=== PATIENT | female | born 1930 | race Caucasian/White ===

== ENCOUNTER 2016-08-12 17:23 | Inpatient (IN) | payer MEDICARE ==
[2016-08-12 19:09] LABS: Hematocrit 37 % (35-47); Hemoglobin 11.4 g/dl (12.0-16.0); Mean Corpuscular HGB Conc 31 g/dl (31-36); Mean Corpuscular Hemoglobin 24 pg (27-31); Mean Corpuscular Volume 76 fL (80-97); Mean Platelet Volume 8 um3 (7.4-10.4); Red Blood Count 4.81 10^6/ul (4.0-5.4); Red Cell Distribution Width 21 % (10.5-15)
[2016-08-12 19:20] LABS: Albumin 3.1 g/dL (3.2-5.2); BUN/Creatinine Ratio 13.8 (8-20); C Reactive Protein 146.77 mg/L (< 5.00); Calcium 8.9 mg/dL (8.6-10.3); EGFR African American 46.7 (>60); EGFR Non-African American 36.3 (>60); Globulin 4.4 g/dL (2-4); Potassium 3.8 mmol/L (3.5-5.0); Total Bilirubin 0.6 mg/dL (0.2-1.0); Total Protein 7.5 g/dL (6.4-8.9)
[2016-08-12 19:22] LABS: Troponin I 0.03 ng/mL (<0.04)
--- NOTE | 2016-08-12 19:40 | RAD ---
Indication: Shortness of breath. Single frontal view of the chest performed at 1909 hours was reviewed. Comparison is made with previous exam dated December 16, 2015. No mediastinal shift is noted. Heart is of normal size and configuration. There is suggestion of a left upper lobe mass with interstitial edema throughout both lung feliz. Findings are consistent with vascular congestion. IMPRESSION: Diffuse interstitial edema with prominent left upper lobe lesion. Vascular congestion should be considered.
[2016-08-12] MEDS ORDERED: NS 0.9% 1000 ML* 1,000 ML IV SCH (21:00)
[2016-08-12 21:33] LABS: FIO2 32
[2016-08-12] MEDS ORDERED: Iodixanol* (CONTRAST) 320 MG/ML 100 ML SDV IV ONE (21:35)
[2016-08-12 21:36] LABS: PCO2 Arterial 45 mmHg (35-45)
--- NOTE | 2016-08-12 23:11 | ED ---
Arcadio Oconnell Erika, scribed for Stevan Sheldon MD on 08/12/16 at 1951 . Altered Mental Status - HPI Summary HPI Summary: Patient is an 85-year-old female BIBA to the ED from [place] for a CC of AMS. 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 When [facility] arrived, they noted her O2 was low. Son states pt was alert yesterday, but has been lethargic today. He denies known cough. Son also reports pt has had lesions since she had an allergic reaction to Abx last year, and states she has been picking at them since then so they are still present. Hx lung CA treated with radiation. Hx breast CA - mastectomy in April 2016. Denies Hx COPD. LEVEL 5 CAVEAT - AMS. - History Of Current Complaint Chief Complaint: EDAltMentalStatus Stated Complaint: AMS Time Seen by Provider: 08/12/16 18:06 Hx Obtained From: Family/Engraving Patternmaker - Son Hx From Patient Unobtainable Due To: Altered Mental Status Onset/Duration: Still Present Timing: Constant Severity Currently: Moderate Character: Responsiveness Aggravating Factor(s): Unknown - Allergies/Home Medications Allergies/Adverse Reactions: Allergies Allergy/AdvReac Type Severity Reaction Status Date / Time Nitrofuran Derivatives Allergy Severe Blisters Verified 07/24/16 10:58 Penicillins [PCN] Allergy Severe Rash Verified 07/24/16 10:43 Terfenadine [From Seldane] Allergy Blisters Verified 07/24/16 10:43 IVC FILTER -NO MRIs Allergy NO Uncoded 07/24/16 10:43 AVAILABLE DOCUMENTATION 0F MAKE AND MODEL PMH/Surg Hx/FS Hx/Imm Hx Endocrine/Hematology History: Reports: Hx Anticoagulant Therapy Denies: Hx Diabetes Cardiovascular History: Reports: Hx Aneurysm, Hx Deep Vein Thrombosis, Hx Embolism Denies: Hx Hypertension, Hx Pacemaker/ICD GI History: Reports: Hx Gastrointestinal Bleed History: Reports: Hx Kidney Infection Denies: Hx Renal Disease Musculoskeletal History: Reports: Hx Bursitis Sensory History: Denies: Hx Hearing Aid Neurological History: Reports: Hx Dementia - ON ARICEPT Psychiatric History: Reports: Hx Depression Denies: Hx Panic Disorder - Cancer History Cancer Type, Location and Year: ROBERT adenocarcinoma. breast CA Hx Chemotherapy: Yes Hx Radiation Therapy: Yes - LUNG CANCER - Surgical History Surgery Procedure, Year, and Place: IVC 2004 FILTER PLACED, lumbar surgery approx. 2001, left mastectomy-04/2016 Infectious Disease History: No Infectious Disease History: Denies: Traveled Outside the [place] in Last 30 Days - Family History Known Family History: Positive: Cardiac Disease - Social History [facility]: [facility] Alcohol Use: Occasionally Alcohol Amount: 1-2 MONTH Hx Substance Use: No Substance Use Type: Reports: None Review of Systems - ROS Summary Review of Systems Summary: LEVEL 5 CAVEAT - AMS Positive: Fatigue Skin: Other - lesions on skin - old Neurological: Other - decreased responsiveness All Other Systems Reviewed And Are Negative: No Physical Exam Triage Information Reviewed: Yes Vital Signs On Initial Exam: Initial Vitals Temp Pulse Resp BP Pulse Ox 98.8 F 95 18 139/72 94 08/12/16 17:30 08/12/16 17:30 08/12/16 17:30 08/12/16 17:30 08/12/16 17:30 Vital Signs Reviewed: Yes Completion Of Physical Exam Limited Due To: Altered Mental Status Appearance: Positive: Well-Appearing, No Pain Distress Skin: Positive: Warm, Skin Color Reflects Adequate Perfusion, Dry, Other - Excoriated lesions - a few on face and LUE Head/Face: Positive: Normal Head/Face Inspection Eyes: Positive: Normal ENT: Positive: Other - dry mucus membranes Neck: Positive: Supple, Nontender Respiratory/Lung Sounds: Positive: Breath Sounds Present, Other - Crackles diffuse in the left lung field Cardiovascular: Positive: RRR Abdomen Description: Positive: Nontender, Soft Bowel Sounds: Positive: Present Musculoskeletal: Positive: Normal. Negative: Edema Left, Edema Right Neurological: Positive: Other - Stuporous, awakes to voice Psychiatric: Positive: Affect/Mood Appropriate - Deng Coma Scale Coma Scale Total: 14 Diagnostics - Vital Signs Vital Signs Temp Pulse Resp BP Pulse Ox 08/12/16 17:30 98.8 F 88 19 139/72 95 - Laboratory Lab Results: Lab Results 08/12/16 08/12/16 08/12/16 Range/Units 17:47 17:47 17:47 WBC 7.0 (3.5-10.8) 10^3/ul RBC 4.81 (4.0-5.4) 10^6/ul Hgb 11.4 L (12.0-16.0) g/dl Hct 37 (35-47) % MCV 76 L (80-97) fL MCH 24 L (27-31) pg MCHC 31 (31-36) g/dl RDW 21 H (10.5-15) % Plt Count 234 (150-450) 10^3/ul MPV 8 (7.4-10.4) um3 Neut % (Auto) 53.5 (38-83) % Lymph % (Auto) 23.8 L (25-47) % Fulton % (Auto) 13.0 H (1-9) % Eos % (Auto) 8.9 H (0-6) % Baso % (Auto) 0.8 (0-2) % Absolute Neuts (auto) 3.7 (1.5-7.7) 10^3/ul Absolute Lymphs (auto) 1.7 (1.0-4.8) 10^3/ul Absolute Monos (auto) 0.9 H (0-0.8) 10^3/ul Absolute Eos (auto) 0.6 (0-0.6) 10^3/ul Absolute Basos (auto) 0.1 (0-0.2) 10^3/ul Absolute Nucleated RBC 0.01 10^3/ul Nucleated RBC % 0.2 D-Dimer, Quantitative 831 H (Less Than 230) ng/mL Patient Temperature ABG pH (7.35-7.45) ABG pCO2 (35-45) mmHg ABG pO2 (80-100) mmHg ABG HCO3 (19-31) mmol/L ABG O2 Saturation (95-98) % ABG Base Excess (-2.0-2.0) Respiration Rate O2 Delivery Device Ventilator Type Vent Mode FiO2 Inspiratory Time PEEP Pressure Support Pressure Control EPAP IPAP BiPAP Sodium 137 (133-145) mmol/L Potassium 3.8 (3.5-5.0) mmol/L Chloride 101 (101-111) mmol/L Carbon Dioxide 28 (22-32) mmol/L Anion Gap 8 (2-11) mmol/L BUN 19 (6-24) mg/dL Creatinine 1.38 H (0.51-0.95) mg/dL Est GFR ( Amer) 46.7 (>60) Est GFR (Non-Af Amer) 36.3 (>60) BUN/Creatinine Ratio 13.8 (8-20) Glucose 101 H (70-100) mg/dL Calcium 8.9 (8.6-10.3) mg/dL Total Bilirubin 0.60 (0.2-1.0) mg/dL AST 31 (13-39) U/L ALT 13 (7-52) U/L Alkaline Phosphatase 136 H (34-104) U/L Troponin I 0.03 (<0.04) ng/mL C-Reactive Protein 146.77 H (< 5.00) mg/L B-Natriuretic Peptide ( - 100) pg/mL Total Protein 7.5 (6.4-8.9) g/dL Albumin 3.1 L (3.2-5.2) g/dL Globulin 4.4 H (2-4) g/dL Albumin/Globulin Ratio 0.7 L (1-3) 08/12/16 08/12/16 Range/Units 17:47 21:25 WBC (3.5-10.8) 10^3/ul RBC (4.0-5.4) 10^6/ul Hgb (12.0-16.0) g/dl Hct (35-47) % MCV (80-97) fL MCH (27-31) pg MCHC (31-36) g/dl RDW (10.5-15) % Plt Count (150-450) 10^3/ul MPV (7.4-10.4) um3 Neut % (Auto) (38-83) % Lymph % (Auto) (25-47) % Fulton % (Auto) (1-9) % Eos % (Auto) (0-6) % Baso % (Auto) (0-2) % Absolute Neuts (auto) (1.5-7.7) 10^3/ul Absolute Lymphs (auto) (1.0-4.8) 10^3/ul Absolute Monos (auto) (0-0.8) 10^3/ul Absolute Eos (auto) (0-0.6) 10^3/ul Absolute Basos (auto) (0-0.2) 10^3/ul Absolute Nucleated RBC 10^3/ul Nucleated RBC % D-Dimer, Quantitative (Less Than 230) ng/mL Patient Temperature Not Reportable ABG pH 7.42 (7.35-7.45) ABG pCO2 45 (35-45) mmHg ABG pO2 66 L (80-100) mmHg ABG HCO3 28.0 (19-31) mmol/L ABG O2 Saturation 94.8 L (95-98) % ABG Base Excess 4.1 H (-2.0-2.0) Respiration Rate Not Reportable O2 Delivery Device oxymask Ventilator Type Not Reportable Vent Mode Not Reportable FiO2 32 Inspiratory Time Not Reportable PEEP Not Reportable Pressure Support Not Reportable Pressure Control Not Reportable EPAP Not Reportable IPAP Not Reportable BiPAP Not Reportable Sodium (133-145) mmol/L Potassium (3.5-5.0) mmol/L Chloride (101-111) mmol/L Carbon Dioxide (22-32) mmol/L Anion Gap (2-11) mmol/L BUN (6-24) mg/dL Creatinine (0.51-0.95) mg/dL Est GFR ( Amer) (>60) Est GFR (Non-Af Amer) (>60) BUN/Creatinine Ratio (8-20) Glucose (70-100) mg/dL Calcium (8.6-10.3) mg/dL Total Bilirubin (0.2-1.0) mg/dL AST (13-39) U/L ALT (7-52) U/L Alkaline Phosphatase (34-104) U/L Troponin I (<0.04) ng/mL C-Reactive Protein (< 5.00) mg/L B-Natriuretic Peptide 83 ( - 100) pg/mL Total Protein (6.4-8.9) g/dL Albumin (3.2-5.2) g/dL Globulin (2-4) g/dL Albumin/Globulin Ratio (1-3) Result Diagrams: 08/12/16 17:47 08/12/16 17:47 Lab Statement: Any lab studies that have been ordered have been reviewed, and results considered in the medical decision making process. - Radiology CXR Radiology Interpretation Completed By: Radiologist - IMPRESSION: Diffuse interstitial edema with prominent left upper lobe lesion. Vascular congestion should be considered. - EKG 20:27 Cardiac Rate: NL - at 91 bpm EKG Rhythm: Sinus Rhythm EKG Interpretation: Possible old inferior NM Altered Mental Statu Course/Dx - Course Course Of Treatment: Ms. Naidu presented with a clear respiratory insufficiency. The cause is still unceertain. Her CXR is quite unusual and may be represents metastatic disease and infection. PE is still in the differential and she will need to be hydrated a bit for a CTA as her GFR is 36. - Diagnoses Discharge Diagnoses: Respiratory insufficiency - Provider Notifications Discussed Care Of Patient With: Dr. Bartlett (hospitalist) at 20:53 - agrees to admit - Critical Care Time Critical Care Time: 30-74 min Discharge - Discharge Plan Condition: Fair Disposition: ADMITTED TO [facility] Referrals: Leon Castaneda MD [Primary Care Provider] - The documentation as recorded by the Arcadio vogel Erika accurately reflects the service I personally performed and the decisions made by me, Stevan Sheldon MD.
--- NOTE | 2016-08-12 23:13 | HP ---
H&P (Free Text) History and Physical: PCP: OLIVER Castaneda MD Oncology: Simon Gonsalez MD Date/Time of Evaluation: 08/12/2016 2300 CC: lethargy HPI: Mrs Naidu is an 85YO female resident of [facility] HX primary lung and breast CA on therapy for breast CA who was found lethargic and brought in for evaluation. She is somnolent, but arouse to voice, seems reliable for current status information, but not for historical information which is provided by her son who is present. he states he last saw her Wednesday for Mother's day and she was at her baseline and able to follow conversations and participate in decisions. He is unaware of any issues until today. Mrs Naidu denies any symptoms at this time, but isn't certain why she is in the emergency room. Vitals are stable. Labs appear baseline excepting a d-dimer of 831 w/o a comparison. Her renal function is CKD stg 3b at baseline and so she will be given 1L IVFs over 4hours prior to obtaining a CTA chest to evaluation for PE although this is low on the differential as it would require cross IVC clot propagation which is possible as she is off anticoagulation due to GI hemorrhage. She has a history of AMS with UTI and this is high on the differential as no other explanation is identified. Will obtain UA via straight cath, if necessary. PMedHx dementia HX lung CA TX'd with radiation only HX breast CA s/p L mastectomy on chemoTX CKD stg 3b HLD HX DVT/presumed PE GI hemorrhage spinal stenosis s/p surgery pelvic FX thoracic aortic aneurysm LE peripheral neuropathy confusion w/ UTIs Ambulatory Orders Aspirin EC Low Dose* [Ecotrin EC Low Dose 81 MG*] 81 mg PO BEDTIME 03/08/13 Donepezil TAB* [Aricept 5 MG TAB*] 5 mg PO BID 03/08/13 Multiple Vitamin [Multi-Day Vitamins] 1 tab PO DAILY 03/08/13 Pregabalin CAP(*) [Lyrica CAP(*)] 150 mg PO BID 03/08/[address] CAP* [Cymbalta CAP*] 60 mg PO DAILY 12/20/13 Cyanocobalamin TAB* [Vitamin B12 TAB*] 1,000 mcg PO DAILY 02/19/15 Acetaminophen TAB* [Tylenol TAB*] 650 mg PO Q6H PRN #0 tab 12/20/15 Allergies Nitrofuran Derivatives Allergy (Severe, Verified 07/24/16 10:58) Blisters CAUSED SEVERE WELTS AND BLISTERS Penicillins [PCN] Allergy (Severe, Verified 07/24/16 10:43) Rash Terfenadine [From Seldane] Allergy (Verified 07/24/16 10:43) Blisters IVC FILTER -NO MRIs Allergy (Uncoded 07/24/16 10:43) NO AVAILABLE DOCUMENTATION 0F MAKE AND MODEL PER DR WATSON - NOT APPROVED FOR MRIs PSurgHx IVC filter placement L-spine surgery for stenosis L mastectomy for breast CA SocHx: former smoker, minimal alcohol, no recreational drugs; lives at [facility]; DNR/I code status FamHx: reviewed, positive for HTN ROS: as above, otherwise reviewed and all were negative Constitutional: NAD, normally developed, well-nourished elderly white female vitals: Vital Signs Temp 36.8 C 08/12/16 23:59 Pulse 85 08/12/16 23:59 Resp 18 08/12/16 23:59 BP 122/68 08/12/16 23:59 Pulse Ox 94 08/12/16 23:59 Intake & Output 08/12/16 08/12/16 08/13/16 11:59 23:59 11:59 Weight 54.431 kg HEENM: atraumatic; sclera/conjunctiva: non-icteric/clear; hearing: clinically intact; oropharynx: clear, mucosa moist Neck: soft tissue: non-tender; thyroid: normal Pulmonary: clear to auscultation bilaterally, good aeration, no accessory muscle use CV: RR/RR, normal S1S2, no carotid bruit, no jugular venous distention, 2+ B DP/ PT, no edema Abdominal: soft, non-distended, non-tender, no rebound/guarding/rigidity, normoactive bowel sounds, no hepatosplenomegaly or masses, no costovertebral angle tenderness Musculoskeletal: general: grossly intact, no overt deformity Integumental: normal appearance and texture of exposed skin Psychiatric orientation: AA&O to PP, not S affect: calm mood: acquiescent eye contact: poor content: unreliable responses: mildly slowed; opens eyes to voice answers appropriately, but unclear on details insight: poor Testing: Lab Results 08/12/16 08/12/16 08/12/16 Range/Units 17:47 17:47 17:47 WBC 7.0 (3.5-10.8) 10^3/ul RBC 4.81 (4.0-5.4) 10^6/ul Hgb 11.4 L (12.0-16.0) g/dl Hct 37 (35-47) % MCV 76 L (80-97) fL MCH 24 L (27-31) pg MCHC 31 (31-36) g/dl RDW 21 H (10.5-15) % Plt Count 234 (150-450) 10^3/ul MPV 8 (7.4-10.4) um3 Neut % (Auto) 53.5 (38-83) % Lymph % (Auto) 23.8 L (25-47) % Callahan % (Auto) 13.0 H (1-9) % Eos % (Auto) 8.9 H (0-6) % Baso % (Auto) 0.8 (0-2) % Absolute Neuts (auto) 3.7 (1.5-7.7) 10^3/ul Absolute Lymphs (auto) 1.7 (1.0-4.8) 10^3/ul Absolute Monos (auto) 0.9 H (0-0.8) 10^3/ul Absolute Eos (auto) 0.6 (0-0.6) 10^3/ul Absolute Basos (auto) 0.1 (0-0.2) 10^3/ul Absolute Nucleated RBC 0.01 10^3/ul Nucleated RBC % 0.2 D-Dimer, Quantitative 831 H (Less Than 230) ng/mL Patient Temperature ABG pH (7.35-7.45) ABG pCO2 (35-45) mmHg ABG pO2 (80-100) mmHg ABG HCO3 (19-31) mmol/L ABG O2 Saturation (95-98) % ABG Base Excess (-2.0-2.0) Respiration Rate O2 Delivery Device Ventilator Type Vent Mode FiO2 Inspiratory Time PEEP Pressure Support Pressure Control EPAP IPAP BiPAP Sodium 137 (133-145) mmol/L Potassium 3.8 (3.5-5.0) mmol/L Chloride 101 (101-111) mmol/L Carbon Dioxide 28 (22-32) mmol/L Anion Gap 8 (2-11) mmol/L BUN 19 (6-24) mg/dL Creatinine 1.38 H (0.51-0.95) mg/dL Est GFR ( Amer) 46.7 (>60) Est GFR (Non-Af Amer) 36.3 (>60) BUN/Creatinine Ratio 13.8 (8-20) Glucose 101 H (70-100) mg/dL Calcium 8.9 (8.6-10.3) mg/dL Total Bilirubin 0.60 (0.2-1.0) mg/dL AST 31 (13-39) U/L ALT 13 (7-52) U/L Alkaline Phosphatase 136 H (34-104) U/L Troponin I 0.03 (<0.04) ng/mL C-Reactive Protein 146.77 H (< 5.00) mg/L B-Natriuretic Peptide ( - 100) pg/mL Total Protein 7.5 (6.4-8.9) g/dL Albumin 3.1 L (3.2-5.2) g/dL Globulin 4.4 H (2-4) g/dL Albumin/Globulin Ratio 0.7 L (1-3) 08/12/16 08/12/16 Range/Units 17:47 21:25 WBC (3.5-10.8) 10^3/ul RBC (4.0-5.4) 10^6/ul Hgb (12.0-16.0) g/dl Hct (35-47) % MCV (80-97) fL MCH (27-31) pg MCHC (31-36) g/dl RDW (10.5-15) % Plt Count (150-450) 10^3/ul MPV (7.4-10.4) um3 Neut % (Auto) (38-83) % Lymph % (Auto) (25-47) % Callahan % (Auto) (1-9) % Eos % (Auto) (0-6) % Baso % (Auto) (0-2) % Absolute Neuts (auto) (1.5-7.7) 10^3/ul Absolute Lymphs (auto) (1.0-4.8) 10^3/ul Absolute Monos (auto) (0-0.8) 10^3/ul Absolute Eos (auto) (0-0.6) 10^3/ul Absolute Basos (auto) (0-0.2) 10^3/ul Absolute Nucleated RBC 10^3/ul Nucleated RBC % D-Dimer, Quantitative (Less Than 230) ng/mL Patient Temperature Not Reportable ABG pH 7.42 (7.35-7.45) ABG pCO2 45 (35-45) mmHg ABG pO2 66 L (80-100) mmHg ABG HCO3 28.0 (19-31) mmol/L ABG O2 Saturation 94.8 L (95-98) % ABG Base Excess 4.1 H (-2.0-2.0) Respiration Rate Not Reportable O2 Delivery Device oxymask Ventilator Type Not Reportable Vent Mode Not Reportable FiO2 32 Inspiratory Time Not Reportable PEEP Not Reportable Pressure Support Not Reportable Pressure Control Not Reportable EPAP Not Reportable IPAP Not Reportable BiPAP Not Reportable Sodium (133-145) mmol/L Potassium (3.5-5.0) mmol/L Chloride (101-111) mmol/L Carbon Dioxide (22-32) mmol/L Anion Gap (2-11) mmol/L BUN (6-24) mg/dL Creatinine (0.51-0.95) mg/dL Est GFR ( Amer) (>60) Est GFR (Non-Af Amer) (>60) BUN/Creatinine Ratio (8-20) Glucose (70-100) mg/dL Calcium (8.6-10.3) mg/dL Total Bilirubin (0.2-1.0) mg/dL AST (13-39) U/L ALT (7-52) U/L Alkaline Phosphatase (34-104) U/L Troponin I (<0.04) ng/mL C-Reactive Protein (< 5.00) mg/L B-Natriuretic Peptide 83 ( - 100) pg/mL Total Protein (6.4-8.9) g/dL Albumin (3.2-5.2) g/dL Globulin (2-4) g/dL Albumin/Globulin Ratio (1-3) ECG, personally reviewed: NSR rate 91, no ischemia CXR, personally reviewed: IMPRESSION: Diffuse interstitial edema with prominent left upper lobe lesion. Vascular congestion should be considered. CT chest/abd/pel W, personally reviewed (07/24/2016): IMPRESSION: 1. THERE HAS BEEN INTERVAL DEVELOPMENT OF AIRSPACE DISEASE OF THE LEFT LOWER LOBE WITH A SMALL NODULE. WHILE THIS MAY BE INFLAMMATORY OR INFECTIOUS IN NATURE, GIVEN THE HISTORY OF MALIGNANCY, METASTATIC NODULE IS WITHIN THE DIFFERENTIAL. RECOMMEND CLOSE INTERVAL FOLLOW-UP. 2. 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 THERE ARE SUBACUTE RIB FRACTURES BILATERALLY. THERE IS DIFFUSE OSTEOPENIA WITH MULTIPLE COMPRESSION DEFORMITIES OF THE SPINE. CONSIDER CORRELATION WITH BONE SCAN TO EVALUATE FOR METASTATIC PATTERN OF UPTAKE. 3. STABLE ASCENDING THORACIC AORTIC ANEURYSM. 4. ATHEROSCLEROSIS CTA chest: ordered, pending Impression: 85F presenting with lethargy/AMS of uncertain etiology despite a paucity of symptoms, infection (particularly UTI given HX or pneumonia given CXR ) is a consideration, elevated d-dimer and HX cancer makes PE a concern despite HX IVC filter (potential cross filter clot propagation as she is not anticoagulated due to HX GI bleeding on TX), dehydration alone could be the culprit, vs other as yet unproclaimed DX DIAGNOSIS & PLAN Primary lethargy : obtain UA, straight cath if needed : blood CX : empiric ceftriaxone & azithromycin : CTA chest after initial 1L fluid hydration : IVFs : supportive care Secondary breast CA s/p L mastectomy : continue outpatient oncology follow up HLD : heart healthy diet CKD stg 3b : no acute issues, periodic monitoring HX DVT/presumed PE : SCDs & heparin SQ HX GI hemorrhage : no NSAIDS LE peripheral neuropathy : continue pregabalin & duloxetine dementia : continue donepezil Admission Rational: DVTp: SCDs & heparin SQ Code Status: DNR/I HCP: sonSerafin
[2016-08-13] MEDS ORDERED: Acetaminophen TAB* 325 MG PO PRN (03:09)
[2016-08-13] MEDS: cefTRIAXone VIAL(*) 1,000 MG in NS 0.9% 50 ML* 50 ML IVPB SCH (05:20)
[2016-08-13] MEDS: Azithromycin IV(*) 500 MG in NS 0.9% 250 ML* 250 ML IVPB SCH (05:50)
[2016-08-13 05:59] LABS: Hematocrit 33 % (35-47); Hemoglobin 10.4 g/dl (12.0-16.0); Mean Corpuscular HGB Conc 32 g/dl (31-36); Mean Corpuscular Hemoglobin 24 pg (27-31); Mean Corpuscular Volume 75 fL (80-97); Mean Platelet Volume 8 um3 (7.4-10.4); Red Blood Count 4.34 10^6/ul (4.0-5.4); Red Cell Distribution Width 20 % (10.5-15); White Blood Count 5.9 10^3/ul (3.5-10.8)
[2016-08-13 06:08] LABS: BUN/Creatinine Ratio 16.2 (8-20); Calcium 7.8 mg/dL (8.6-10.3); EGFR African American 60.1 (>60); EGFR Non-African American 46.7 (>60); Potassium 3.8 mmol/L (3.5-5.0)
--- NOTE | 2016-08-13 08:20 | RAD ---
INDICATION: Shortness of breath COMPARISON: Most recent comparison CT is dated July 24, 2016 TECHNIQUE: Axial source images were acquired following the administration of 66 mL Visipaque [address] angiographic technique. Coronal and sagittal reconstructed images were constructed and reviewed. FINDINGS: There there are no filling defects in the pulmonary arteries to indicate acute pulmonary embolic disease. Again seen are diffuse centrilobular emphysematous changes similar in appearance to the previous CT examination. New since the previous CT examination are patchy groundglass opacifications and areas of interlobular thickening, most severely affecting the left lower lobe. There is no pleural effusion. There is no focal consolidation. The heart is normal in size. There is no evidence of pericardial effusion. 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 There are 2 precarinal lymph nodes (image 95), each measuring 9 mm in short axis diameter that have increased slightly compared to the previous CT examination. Similar to the previous CT examination there are multilevel degenerative changes of the thoracic spine including loss of intervertebral disc height and sclerotic compression deformity of the T7 vertebral body. Hyperattenuating sclerotic foci in the vertebral bodies are similar in appearance to the previous CT examination. Limited views of the upper abdomen show no abnormalities. IMPRESSION: 1. No CT evidence of acute pulmonary embolism. 2. Since the July 24, 2016 CT examination there has been interval development of patchy groundglass densities in interlobular thickening diffusely involving all 5 lobes but most severely affecting the left lower lobe. Diagnostic etiologies could include pulmonary edema, pneumonitis or organizing pneumonia. The time course of this appearance is likely too quick for chronic interstitial lung disease. 3. 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 4. Stable sclerotic lesions of the thoracic spine not changed since the July 24, 2016 CT examination.
[2016-08-13] MEDS: DULoxetine DR CAP* 30 MG CAP.DR PO SCH (08:47)
[2016-08-13] MEDS: Pregabalin CAP(*) 50 MG PO SCH ×2 (08:47→20:51)
[2016-08-13] MEDS: Donepezil TAB* 5 MG PO SCH ×2 (08:47→20:52)
[2016-08-13] MEDS ORDERED: Docusate CAP* 100 MG PO SCH (09:00)
[2016-08-13] MEDS ORDERED: Docusate CAP* 100 MG PO PRN (14:33)
[2016-08-13] MEDS ORDERED: Iodixanol* (CONTRAST) 320 MG/ML 100 ML SDV IV SCH (14:46)
--- NOTE | 2016-08-13 15:08 | PN ---
Subjective Date of Service: 08/13/16 Interval History: Pt is feeling well currently. She states she does not feel sleepy at this time. She states she has no pain or SOB. She does note that she has had a cough but she has not been producing any sputum. Objective Active Medications: Acetaminophen (Tylenol Tab*) 650 mg PO Q6H PRN PRN Reason: FEVER/PAIN Albuterol (Ventolin 2.5 Mg/3 Ml Neb.Zainab*) 2.5 mg INH Q2H PRN PRN Reason: SOB/WHEEZING Aspirin (Aspirin Ec Low Dose*) 81 mg PO BEDTIME [facility] Docusate Sodium (Colace Cap*) 200 mg PO BID PRN PRN Reason: CONSTIPATION Donepezil HCl (Aricept Tab*) 5 mg PO BID [facility] Last Admin: 08/13/16 08:47 Dose: 5 mg Duloxetine HCl (Cymbalta Cap*) 60 mg PO DAILY [facility] Last Admin: 08/13/16 08:47 Dose: 60 mg Heparin Sodium (Porcine) (Heparin Vial(*)) 5,000 units SUBCUT Q8HR [facility] Ceftriaxone Sodium 1,000 mg/ (Sodium Chloride) 50 mls @ 200 mls/hr IVPB Q24H [facility] Last Admin: 08/13/16 05:20 Dose: 200 mls/hr Azithromycin 500 mg/ Sodium (Chloride) 250 mls @ 250 mls/hr IVPB Q24H [facility] Last Admin: 08/13/16 05:50 Dose: 250 mls/hr Iodixanol (Visipaque* 320 (Contrast)) 75 ml IV ONCE [facility] Stop: 08/15/16 14:45 Pregabalin (Lyrica Cap(*)) 150 mg PO BID [facility] Last Admin: 08/13/16 08:47 Dose: 150 mg Vital Signs 08/12/16 08/13/16 08/13/16 23:59 00:00 00:12 Temperature 98.3 F Pulse Rate 85 87 89 Respiratory 18 20 21 Rate Blood Pressure 122/68 (mmHg) O2 Sat by Pulse 94 92 92 Oximetry 08/13/16 08/13/16 08/13/16 04:27 08:00 08:11 Temperature 97.8 F Pulse Rate 90 96 Respiratory 16 18 Rate Blood Pressure 139/68 149/52 (mmHg) O2 Sat by Pulse 89 93 93 Oximetry 08/13/16 08/13/1608/13/17 08:47 10:47 11:38 Temperature 97.3 F Pulse Rate 100 Respiratory 18 20 16 Rate Blood Pressure 131/78 (mmHg) O2 Sat by Pulse 92 Oximetry Oxygen Devices in Use Now: Simple Face Mask - 4.5L-92% Appearance: Elderly female lying in bed, NAD Eyes: No Scleral Icterus Ears/Nose/Mouth/Throat: Mucous Membranes Moist Respiratory: Symmetrical Chest Expansion and Respiratory Effort, - - crackles about 1/3 way up on R, 2/3 way up on L Cardiovascular: NL Sounds; No Murmurs; No JVD, RRR, No Edema Abdominal: NL Sounds; No Tenderness; No Distention Extremities: No Clubbing, Cyanosis Skin: No Nodules or Sclerosis, - - scabs noted on arms Neurological: - - alert, oriented to being in the hospital, month, unable to tell me the town Result Diagrams: 08/13/16 05:34 08/13/16 05:34 Additional Lab and Data: Lab Results 08/12/16 08/12/16 08/12/16 Range/Units 17:47 17:47 17:47 WBC 7.0 (3.5-10.8) 10^3/ul RBC 4.81 (4.0-5.4) 10^6/ul Hgb 11.4 L (12.0-16.0) g/dl Hct 37 (35-47) % MCV 76 L (80-97) fL MCH 24 L (27-31) pg MCHC 31 (31-36) g/dl RDW 21 H (10.5-15) % Plt Count 234 (150-450) 10^3/ul MPV 8 (7.4-10.4) um3 Neut % (Auto) 53.5 (38-83) % Lymph % (Auto) 23.8 L (25-47) % [place] % (Auto) 13.0 H (1-9) % Eos % (Auto) 8.9 H (0-6) % Baso % (Auto) 0.8 (0-2) % Absolute Neuts (auto) 3.7 (1.5-7.7) 10^3/ul Absolute Lymphs (auto) 1.7 (1.0-4.8) 10^3/ul Absolute Monos (auto) 0.9 H (0-0.8) 10^3/ul Absolute Eos (auto) 0.6 (0-0.6) 10^3/ul Absolute Basos (auto) 0.1 (0-0.2) 10^3/ul Absolute Nucleated RBC 0.01 10^3/ul Nucleated RBC % 0.2 D-Dimer, Quantitative 831 H (Less Than 230) ng/mL Patient Temperature ABG pH (7.35-7.45) ABG pCO2 (35-45) mmHg ABG pO2 (80-100) mmHg ABG HCO3 (19-31) mmol/L ABG O2 Saturation (95-98) % ABG Base Excess (-2.0-2.0) Respiration Rate O2 Delivery Device Ventilator Type Vent Mode FiO2 Inspiratory Time PEEP Pressure Support Pressure Control EPAP IPAP BiPAP Sodium 137 (133-145) mmol/L Potassium 3.8 (3.5-5.0) mmol/L Chloride 101 (101-111) mmol/L Carbon Dioxide 28 (22-32) mmol/L Anion Gap 8 (2-11) mmol/L BUN 19 (6-24) mg/dL Creatinine 1.38 H (0.51-0.95) mg/dL Est GFR ( Amer) 46.7 (>60) Est GFR (Non-Af Amer) 36.3 (>60) BUN/Creatinine Ratio 13.8 (8-20) Glucose 101 H (70-100) mg/dL Calcium 8.9 (8.6-10.3) mg/dL Total Bilirubin 0.60 (0.2-1.0) mg/dL AST 31 (13-39) U/L ALT 13 (7-52) U/L Alkaline Phosphatase 136 H (34-104) U/L Troponin I 0.03 (<0.04) ng/mL C-Reactive Protein 146.77 H (< 5.00) mg/L B-Natriuretic Peptide ( - 100) pg/mL Total Protein 7.5 (6.4-8.9) g/dL Albumin 3.1 L (3.2-5.2) g/dL Globulin 4.4 H (2-4) g/dL Albumin/Globulin Ratio 0.7 L (1-3) 08/12/16 08/12/16 Range/Units 17:47 21:25 WBC (3.5-10.8) 10^3/ul RBC (4.0-5.4) 10^6/ul Hgb (12.0-16.0) g/dl Hct (35-47) % MCV (80-97) fL MCH (27-31) pg MCHC (31-36) g/dl RDW (10.5-15) % Plt Count (150-450) 10^3/ul MPV (7.4-10.4) um3 Neut % (Auto) (38-83) % Lymph % (Auto) (25-47) % [place] % (Auto) (1-9) % Eos % (Auto) (0-6) % Baso % (Auto) (0-2) % Absolute Neuts (auto) (1.5-7.7) 10^3/ul Absolute Lymphs (auto) (1.0-4.8) 10^3/ul Absolute Monos (auto) (0-0.8) 10^3/ul Absolute Eos (auto) (0-0.6) 10^3/ul Absolute Basos (auto) (0-0.2) 10^3/ul Absolute Nucleated RBC 10^3/ul Nucleated RBC % D-Dimer, Quantitative (Less Than 230) ng/mL Patient Temperature Not Reportable ABG pH 7.42 (7.35-7.45) ABG pCO2 45 (35-45) mmHg ABG pO2 66 L (80-100) mmHg ABG HCO3 28.0 (19-31) mmol/L ABG O2 Saturation 94.8 L (95-98) % ABG Base Excess 4.1 H (-2.0-2.0) Respiration Rate Not Reportable O2 Delivery Device oxymask Ventilator Type Not Reportable Vent Mode Not Reportable FiO2 32 Inspiratory Time Not Reportable PEEP Not Reportable Pressure Support Not Reportable Pressure Control Not Reportable EPAP Not Reportable IPAP Not Reportable BiPAP Not Reportable Sodium (133-145) mmol/L Potassium (3.5-5.0) mmol/L Chloride (101-111) mmol/L Carbon Dioxide (22-32) mmol/L Anion Gap (2-11) mmol/L BUN (6-24) mg/dL Creatinine (0.51-0.95) mg/dL Est GFR ( Amer) (>60) Est GFR (Non-Af Amer) (>60) BUN/Creatinine Ratio (8-20) Glucose (70-100) mg/dL Calcium (8.6-10.3) mg/dL Total Bilirubin (0.2-1.0) mg/dL AST (13-39) U/L ALT (7-52) U/L Alkaline Phosphatase (34-104) U/L Troponin I (<0.04) ng/mL C-Reactive Protein (< 5.00) mg/L B-Natriuretic Peptide 83 ( - 100) pg/mL Total Protein (6.4-8.9) g/dL Albumin (3.2-5.2) g/dL Globulin (2-4) g/dL Albumin/Globulin Ratio (1-3) Microbiology and Other Data: Microbiology 08/13/16 00:46 Nasal Screen MRSA (PCR)([facility]) - Final Nasal Mrsa Positive Assess/Plan/Problems-Billing Ms Naidu is an 85 yo F who has a h/o lung cancer, breast cancer (currently going through chemo-last round of chemo was 16 days ago), stage III CKD, and h/ o DVT/PE in past who presented to the ER with c/o lethargy. - Patient Problems (1) Lethargy Current Visit: Yes Status: Acute Code(s): R53.83 - OTHER FATIGUE SNOMED Code(s): 175079878 Comment: Etiology is not completely clear. ? infectious vs seizure vs other. She is being treated for a possible pneumonia as perhaps an infectious pneumonia has led to her lethargy. I am also concerned about possible seizure with post-ictal state as she has a h/o breast cancer that is already metastatic to the liver. Will get CT brain with contrast to eval for metastatic disease. If anything abnormal brain CT will get EEG. She suddenly "woke up" this afternoon and is now alert. She is slightly confused still however. (2) Pneumonia Current Visit: Yes Status: Acute Code(s): J18.9 - PNEUMONIA, UNSPECIFIED ORGANISM SNOMED Code(s): 744641346 Comment: Will try to get a sputum sample. Send urine legionella and S pneumoniae antigens. Continue ceftriaxone and azithromycin. Try to wean down O2 if possible. (3) Breast cancer metastasized to liver Current Visit: Yes Status: Acute Code(s): C50.919 - MALIGNANT NEOPLASM OF UNSP SITE OF UNSPECIFIED FEMALE BREAST; C78.7 - SECONDARY MALIG NEOPLASM OF LIVER AND INTRAHEPATIC BILE DUCT SNOMED Code(s): 486746654 Comment: The patient is actively going through chemo. Her last chemo dose was 16 days ago. Will ask for oncology follow up tomorrow. (4) Stage III chronic kidney disease Current Visit: Yes Status: Acute Code(s): N18.3 - CHRONIC KIDNEY DISEASE, STAGE 3 (MODERATE) SNOMED Code(s): 062621204 Comment: Creatinine is at baseline. Continue to monitor. (5) DVT prophylaxis Current Visit: Yes Status: Acute Code(s): XCQ7814 - SNOMED Code(s): 987323201 Comment: SQ heparin (6) DNR (do not resuscitate) Current Visit: Yes Status: Acute
--- NOTE | 2016-08-13 16:57 | RAD ---
INDICATION: Altered mental status evaluate for metastatic disease. COMPARISON: Comparison is made with a prior CT of the brain from July 31, 2015. TECHNIQUE: Contiguous axial sections of the brain were obtained from the skull base to the vertex without and with contrast following intravenous injection of 75 ml of Visipaque 320 nonionic contrast. FINDINGS: The ventricles, cisterns and sulci are enlarged consistent with diffuse atrophy. There are small areas of decreased attenuation present in the subcortical and periventricular white matter most consistent with mild chronic small vessel ischemic changes. There is an old lacunar infarct present within the thalamus on the right side. No mass effect or abnormal area of enhancement is seen. There is no evidence for hemorrhage. No significant focal osseous abnormality is present. The visualized portion of the paranasal sinuses and mastoid air cells appear clear. IMPRESSION: 1. NO EVIDENCE FOR METASTATIC DISEASE. 2. 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
[2016-08-13] MEDS ORDERED: NS 0.9% 1000 ML* 1,000 ML IV SCH (17:30)
[2016-08-13] MEDS: Albuterol 2.5 MG/3 ML NEB.SOL* (0.083%) INH PRN (17:44)
[2016-08-13] MEDS: Aspirin EC Low Dose* 81 MG TAB.EC PO SCH (20:53)
[2016-08-14] MEDS: cefTRIAXone VIAL(*) 1,000 MG in NS 0.9% 50 ML* 50 ML IVPB SCH (05:07)
[2016-08-14] MEDS: Heparin VIAL(*) 5000 UNITS/ML VIAL (FIVE THOUSAND) SUBCUT SCH ×3 (05:23→22:23)
[2016-08-14] MEDS: Azithromycin IV(*) 500 MG in NS 0.9% 250 ML* 250 ML IVPB SCH (05:27)
[2016-08-14] MEDS: Donepezil TAB* 5 MG PO SCH ×2 (10:51→22:20)
[2016-08-14] MEDS: DULoxetine DR CAP* 30 MG CAP.DR PO SCH (10:51)
[2016-08-14] MEDS: Pregabalin CAP(*) 50 MG PO SCH ×2 (10:51→22:20)
--- NOTE | 2016-08-14 11:39 | PN ---
Progress Note - Progress Note SOAP: Subjective: []Presented to ER evening of 07/13 with AMS and admitted with concern for infection, work-up favoring pneumonia. Mild improvement since admission (venita. in terms of mental status). Last night tachycardia with EKG revealing A.Flutter , though tele cont.'s to show P-waves with sinus arhythmias. Underlying metastatic breast cancer tx.'d with Kadcyla s/p C4 07/[address] with known response on CT following C3. Known alzheimers, lives @ [facility]. Evelin states she feels OK, though needs to have a BM. "I guess I'm slightly confused." Notes her breathing is a little hard and has a cough when she deep breaths. Medications: Acetaminophen (Tylenol Tab*) 650 mg PO Q6H PRN PRN Reason: FEVER/PAIN Albuterol (Ventolin 2.5 Mg/3 Ml Neb.Zainab*) 2.5 mg INH Q2H PRN PRN Reason: SOB/WHEEZING Last Admin: 08/13/16 17:44 Dose: 2.5 mg Aspirin (Aspirin Ec Low Dose*) 81 mg PO BEDTIME [facility] Last Admin: 08/13/16 20:53 Dose: 81 mg Docusate Sodium (Colace Cap*) 200 mg PO BID PRN PRN Reason: CONSTIPATION Donepezil HCl (Aricept Tab*) 5 mg PO BID [facility] Last Admin: 08/14/16 10:51 Dose: 5 mg Duloxetine HCl (Cymbalta Cap*) 60 mg PO DAILY [facility] Last Admin: 08/14/16 10:51 Dose: 60 mg Heparin Sodium (Porcine) (Heparin Vial(*)) 5,000 units SUBCUT Q8HR [facility] Last Admin: 08/14/16 05:23 Dose: 5,000 units Ceftriaxone Sodium 1,000 mg/ (Sodium Chloride) 50 mls @ 200 mls/hr IVPB Q24H [facility] Last Admin: 08/14/16 05:07 Dose: 200 mls/hr Azithromycin 500 mg/ Sodium (Chloride) 250 mls @ 250 mls/hr IVPB Q24H [facility] Last Admin: 08/14/16 05:27 Dose: 250 mls/hr Sodium Chloride (Ns 0.9% 1000 Ml*) 1,000 mls @ 75 mls/hr IV PER RATE [facility] Last Admin: 08/14/16 10:53 Dose: 75 mls/hr Iodixanol (Visipaque* 320 (Contrast)) 75 ml IV ONCE [facility] Stop: 08/15/16 14:45 Last Admin: 08/13/16 16:09 Dose: 75 ml Pregabalin (Lyrica Cap(*)) 150 mg PO BID [facility] Last Admin: 08/14/16 10:51 Dose: 150 mg Objective: [] Vital Signs Temp Pulse Resp BP Pulse Ox 96.7 F 108 20 151/82 90 08/14/16 08:01 08/14/16 08:01 08/14/16 10:51 08/14/16 08:01 08/14/16 08:01 A&Ox3, though some difficulty with situation. HRR, tele ST with PVCs LS with crackles left base, dim. right base, scattered wheeze +BS, abd. soft and non-tender +PP=bilat., no edema noted Assessment: []85 yo f with metastatic breast cancer currently receiving Kadcyla and tolerating reasonably well. Admitted to the hospital with altered mental status and CT reveal concern for pneumonia, improving slowing with IV abx. albeit cont.'d resp. effort despite supplemental O2. She is more alert at this point when compared to ER notation, however appears to me acutely ill when compared to visits in the office. Plan: []1. Pneumonia: agree with current abx., unlikley pneumonitis with timing, though is she really isn't improving can consider steroids. Will check LDH and procalcitonin. Request Respiratory Therapy assessment and protocol for scheduled nebs and possible sputum induction. 2. Tachycardia: likely compensatory, cont. to monitor tele 3. Breast Cancer: good response with improved liver disease, reasonable to resume once back at baseline Will transfer pt. to Oncology Services d/t current tx.
[2016-08-14] MEDS: Albuterol 2.5 MG/3 ML NEB.SOL* (0.083%) INH PRN ×2 (14:07→23:08)
[2016-08-14] MEDS ORDERED: NS 0.9% 1000 ML* 1,000 ML IV SCH (15:36)
[2016-08-14] MEDS: Aspirin EC Low Dose* 81 MG TAB.EC PO SCH (22:19)
[2016-08-15] MEDS: Morphine INJ* 2 MG/ML 1 ML SYRINGE IV PRN ×2 (00:29→05:13)
[2016-08-15] MEDS: Heparin VIAL(*) 5000 UNITS/ML VIAL (FIVE THOUSAND) SUBCUT SCH ×3 (05:20→22:09)
[2016-08-15] MEDS: cefTRIAXone VIAL(*) 1,000 MG in NS 0.9% 50 ML* 50 ML IVPB SCH (05:22)
[2016-08-15 06:16] LABS: Hematocrit 34 % (35-47); Hemoglobin 10.7 g/dl (12.0-16.0); Mean Corpuscular HGB Conc 31 g/dl (31-36); Mean Corpuscular Hemoglobin 24 pg (27-31); Mean Corpuscular Volume 75 fL (80-97); Mean Platelet Volume 8 um3 (7.4-10.4); Red Blood Count 4.52 10^6/ul (4.0-5.4); Red Cell Distribution Width 21 % (10.5-15); White Blood Count 7.6 10^3/ul (3.5-10.8)
[2016-08-15 06:34] LABS: Albumin 2.7 g/dL (3.2-5.2); BUN/Creatinine Ratio 15.6 (8-20); Calcium 8.1 mg/dL (8.6-10.3); EGFR Non-African American 55.2 (>60); Globulin 3.8 g/dL (2-4); Potassium 3.7 mmol/L (3.5-5.0); Total Bilirubin 0.5 mg/dL (0.2-1.0); Total Protein 6.5 g/dL (6.4-8.9)
[2016-08-15] MEDS: Azithromycin IV(*) 500 MG in NS 0.9% 250 ML* 250 ML IVPB SCH (06:49)
[2016-08-15] MEDS: Donepezil TAB* 5 MG PO SCH ×2 (07:22→22:09)
[2016-08-15] MEDS: DULoxetine DR CAP* 30 MG CAP.DR PO SCH (07:24)
[2016-08-15] MEDS ORDERED: Furosemide IV* 10 MG/ML 2 ML VIAL (20 MG) IV STA (07:36)
[2016-08-15] MEDS ORDERED: methylPREDNISolone 125 MG* 2 ML VIAL IV ONE (07:38)
[2016-08-15] MEDS: Pregabalin CAP(*) 50 MG PO SCH ×2 (07:40→22:08)
--- NOTE | 2016-08-15 07:45 | PN ---
Progress Note - Progress Note SOAP: Subjective: patient states that she feels well this am, though visually looks ill. quite tachypneic at rest though denies SOB. over night apparently desaturated several times requiring face mask. she did have a bowel movement yesterday after some constipation Objective: Vital Signs Temp Pulse Resp BP Pulse Ox 97.5 F 107 28 133/85 90 08/14/16 20:17 08/14/16 20:17 08/15/16 07:40 08/14/16 20:08/15/16 02:13 currently breathing at 30-34, satting 88% on 5L sitting up tachypneic tachycardic diffuse crackles R>L soft nt +bs trace le edema scattered escoriations on head, face, legs with crusting oriented to place and time at this point. clearly confused on details but able to tell me where she is, where she lives, etc.. grossly nonfocal Laboratory Results - last 24 hr 08/14/16 08/15/16 08/15/16 13:12 05:43 05:43 WBC 7.6 RBC 4.52 Hgb 10.7 L Hct 34 L MCV 75 L MCH 24 L MCHC 31 RDW 21 H Plt Count 224 MPV 8 Neut % (Auto) 80.3 Lymph % (Auto) 6.7 L [place] % (Auto) 11.2 H Eos % (Auto) 1.4 Baso % (Auto) 0.4 Absolute Neuts (auto) 6.1 Absolute Lymphs (auto) 0.5 L Absolute Monos (auto) 0.8 Absolute Eos (auto) 0.1 Absolute Basos (auto) 0 Absolute Nucleated RBC 0 Nucleated RBC % 0 Sodium 139 Potassium 3.7 Chloride 107 Carbon Dioxide 24 Anion Gap 8 BUN 15 Creatinine 0.96 H Est GFR ( Amer) 71.0 Est GFR (Non-Af Amer) 55.2 BUN/Creatinine Ratio 15.6 Glucose 131 H Calcium 8.1 L Total Bilirubin 0.50 AST 25 ALT 11 Alkaline Phosphatase 114 H Lactate Dehydrogenase 308 H Total Protein 6.5 Albumin 2.7 L Globulin 3.8 Albumin/Globulin Ratio 0.7 L Acetaminophen (Tylenol Tab*) 650 mg PO Q6H PRN PRN Reason: FEVER/PAIN Albuterol (Ventolin 2.5 Mg/3 Ml Neb.Zainab*) 2.5 mg INH Q2H PRN PRN Reason: SOB/WHEEZING Last Admin: 08/14/16 23:08 Dose: 2.5 mg Aspirin (Aspirin Ec Low Dose*) 81 mg PO BEDTIME [facility] Last Admin: 08/14/16 22:19 Dose: 81 mg Docusate Sodium (Colace Cap*) 200 mg PO BID PRN PRN Reason: CONSTIPATION Donepezil HCl (Aricept Tab*) 5 mg PO BID [facility] Last Admin: 08/15/16 07:22 Dose: 5 mg Duloxetine HCl (Cymbalta Cap*) 60 mg PO DAILY [facility] Last Admin: 08/15/16 07:24 Dose: 60 mg Heparin Sodium (Porcine) (Heparin Vial(*)) 5,000 units SUBCUT Q8HR [facility] Last Admin: 08/15/16 05:20 Dose: 5,000 units Ceftriaxone Sodium 1,000 mg/ (Sodium Chloride) 50 mls @ 200 mls/hr IVPB Q24H [facility] Last Admin: 08/15/16 05:22 Dose: 200 mls/hr Azithromycin 500 mg/ Sodium (Chloride) 250 mls @ 250 mls/hr IVPB Q24H [facility] Last Admin: 08/15/16 06:49 Dose: 250 mls/hr Iodixanol (Visipaque* 320 (Contrast)) 75 ml IV ONCE [facility] Stop: 08/15/16 14:45 Last Admin: 08/13/16 16:09 Dose: 75 ml Morphine Sulfate (Morphine Inj (Syringe)*) 2 mg IV Q3H PRN PRN Reason: PAIN Last Admin: 08/15/16 05:13 Dose: 2 mg Pregabalin (Lyrica Cap(*)) 150 mg PO BID [facility] Last Admin: 08/15/16 07:40 Dose: 150 mg Assessment: 85 yo F w metastatic Her 2 positive breast cancer on palliative ado-trastuzumab presenting with lethargy and AMS. Her chest CT from admission appears like either pneumonitis, edema or lymphangitic spread of her tumor to me. Her BNP was only 87 and clinically she was quite dry making fluid overload unlikely at the time. She is currently deteriorating after receiving 2 days of IVFs. Though it is possible that this is fluid overload, I am concerned that this is progression of her pulmonary process. Plan: -will likely move to ICU and get critical care consult for consideration of vapotherm -lasix 20 mg IV stat, check BNP -will give a dose of steroids to cover pneumonitis. This has been rarely reported with ado-trastuzumab use -portable CXR -echocardiogram -cont ceftriaxone and azithro for now. Given fast time course of development I think PCP is less likely, though I do note the start of some ground glass opacification at the left base [address] scan. -DNR
[2016-08-15] MEDS: Albuterol 2.5 MG/3 ML NEB.SOL* (0.083%) INH PRN (08:04)
--- NOTE | 2016-08-15 08:32 | RAD ---
HISTORY: Hypoxia COMPARISONS: August 15, 2016, CT dated August 13, 2016 VIEWS:1: Single frontal portable view of the chest at 8:00 AM FINDINGS: LINES AND TUBES: None. CARDIOMEDIASTINAL SILHOUETTE: The cardiomediastinal silhouette is stable. PLEURA: The costophrenic angles are sharp. No pleural abnormalities are noted. LUNG PARENCHYMA: There is progressive diffuse reticular and alveolar opacities throughout both lung feliz with relative sparing of the left apex ABDOMEN: The upper abdomen is clear. There is no subphrenic gas. BONES AND SOFT TISSUES: No bone or soft tissue abnormalities are noted. IMPRESSION: PROGRESSION OF PULMONARY INTERSTITIAL AND ALVEOLAR EDEMA WITH RELATIVE SPARING OF THE LEFT LUNG APEX
--- NOTE | 2016-08-15 12:03 | CONSULT ---
Consult Consult: Consultation Note Critical Care Requesting Physician: Dr Ayana Marquez Reason for consult: respiratory distress Limitations in history/physical: none Date of consult: 08/15/2016 HPI: 85y F who came from [facility] for altered mental status, decreased responsiveness. She was initially hypoxic on evaluation. She has a past history of Lung Ca s/p radiation therapy. She has Her 2+ Breast Ca s/p mastectomy 2016. Initial CXR and CT chest demonstrated some possible bilateral infiltrates more pronounced at the left base. Progressive she has become more hypoxic on the medical floor, requiring NRM now. A question of fluid overload versus pneumonitis or pneumonia was asked. She has been given Lasix but CXR still looked progressively worse after diuresis, even with normal BNPs. Antibiotics were started to cover for HCAP infection. ROS: 14 point ROS are negative except for pertinent positives/negatives mentioned above. 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, s/p IVC filter 2003; h/o GI bleed, Depression, Thoracic Aortic aneurysm, Hyperlipidemia, peripheral neuropathy PSHx: IVC filter 2003, lumbar surgery 2001, left mastectomy 04/2016 Family History: cardiac disease Social History: No smoking or drug use; mild social alcohol use before Allergies: Allergies Allergy/AdvReac Type Severity Reaction Status Date / Time Nitrofuran Derivatives Allergy Severe Blisters Verified 07/24/16 10:58 Penicillins [PCN] Allergy Severe Rash Verified 07/24/16 10:43 Terfenadine [From Seldane] Allergy Blisters Verified 07/24/16 10:43 IVC FILTER -NO MRIs Allergy NO Uncoded 07/24/16 10:43 AVAILABLE DOCUMENTATION 0F MAKE AND MODEL Home Medications: Aspirin EC Low Dose* [Ecotrin EC Low Dose 81 MG*] 81 mg PO BEDTIME 03/08/13 [ History Confirmed 08/12/16] Donepezil TAB* [Aricept 5 MG TAB*] 5 mg PO BID 03/08/13 [History Confirmed 08/12] Multiple Vitamin [Multi-Day Vitamins] 1 tab PO DAILY 03/08/13 [History Confirmed 08/12/16] Pregabalin CAP(*) [Lyrica CAP(*)] 150 mg PO BID 03/08/13 [History Confirmed ] DULoxetine DR CAP* [Cymbalta CAP*] 60 mg PO DAILY 12/20/13 [History Confirmed ] Cyanocobalamin TAB* [Vitamin B12 TAB*] 1,000 mcg PO DAILY 02/19/15 [History Confirmed 08/12/16] Acetaminophen TAB* [Tylenol TAB*] 650 mg PO Q6H PRN #0 tab 12/20/15 [Rx Confirmed 08/12/16] Tele: NSR Vitals: Vital Signs Temp 98.3 F 08/15/16 10:44 Pulse 88 08/15/16 10:44 Resp 26 08/15/16 10:44 BP 111/66 08/15/16 10:44 Pulse Ox 83 08/15/16 10:44 Intake & Output 08/14/16 08/15/16 08/15/16 18:59 06:59 18:59 Intake Total 250 60 Output Total 0 Balance 250 60 Weight 135 lb 9.6 oz Intake: IVPB 60 ABX - CEFTRIAXONE 60 Oral 250 0 Output: Urine 0 Other: Estimated Void Large # Bowel Movements 1 1 Estimated Stool Amount Small Large # Voids 2 0 O2/Vent: NIV 12/7, 45% - sat 100%, tv 550, rr 18 Infusions: none Current Medications: Acetaminophen (Tylenol Tab*) 650 mg PO Q6H PRN PRN Reason: FEVER/PAIN Albuterol (Ventolin 2.5 Mg/3 Ml Neb.Zainab*) 2.5 mg INH Q2H PRN PRN Reason: SOB/WHEEZING Last Admin: 08/15/16 08:04 Dose: 2.5 mg Aspirin (Aspirin Ec Low Dose*) 81 mg PO BEDTIME [facility] Last Admin: 08/14/16 22:19 Dose: 81 mg Docusate Sodium (Colace Cap*) 200 mg PO BID PRN PRN Reason: CONSTIPATION Donepezil HCl (Aricept Tab*) 5 mg PO BID [facility] Last Admin: 08/15/16 07:22 Dose: 5 mg Duloxetine HCl (Cymbalta Cap*) 60 mg PO DAILY [facility] Last Admin: 08/15/16 07:24 Dose: 60 mg Heparin Sodium (Porcine) (Heparin Vial(*)) 5,000 units SUBCUT Q8HR [facility] Last Admin: 08/15/16 05:20 Dose: 5,000 units Trimethoprim/Sulfamethoxazole (300 mg/ Dextrose) 518.75 mls @ 500 mls/hr IVPB Q8H [facility] Doxycycline Hyclate 100 mg/ (Sodium Chloride) 250 mls @ 250 mls/hr IVPB Q12H [facility] Anidulafungin 100 mg/ Sodium (Chloride) 130 mls @ 65 mls/hr IVPB Q24H [facility] Cefepime HCl 2 gm/ Sodium (Chloride) 50 mls @ 100 mls/hr IVPB Q24HR [facility] Iodixanol (Visipaque* 320 (Contrast)) 75 ml IV ONCE [facility] Stop: 08/15/16 14:45 Last Admin: 08/13/16 16:09 Dose: 75 ml Methylprednisolone Sodium Succinate (Solu-Medrol 40 Mg) 60 mg IV Q8H [facility] Morphine Sulfate (Morphine Inj (Syringe)*) 2 mg IV Q3H PRN PRN Reason: PAIN Last Admin: 08/15/16 05:13 Dose: 2 mg Pregabalin (Lyrica Cap(*)) 150 mg PO BID [facility] Last Admin: 08/15/16 07:40 Dose: 150 mg Physical Exam: General: awakens, alert, no distress, no diaphoresis, cooperative; on NIV Head: normocephalic, atraumatic HEENT: no pallor, no icterus, moist mucous membranes Neck: soft, supple, no jvd, no stridor CVS: normal rate, normal rhythm, no murmur Resp: bilateral air entry, +rhales bilaterally, no wheeze, +rhonchi, no acc muscle use Abdomen: soft, nontender, nondistended, bowel sounds present Ext: pulses+, warm, no edema Skin: intact, no breakdown, no dryness Neuro: awakens, alert, orientedx3, moving all extremities, no gross focal deficit Labs: Laboratory Results - last 24 hr 08/14/16 08/15/16 08/15/16 13:12 05:43 05:43 WBC 7.6 RBC 4.52 Hgb 10.7 L Hct 34 L MCV 75 L MCH 24 L MCHC 31 RDW 21 H Plt Count 224 MPV 8 Neut % (Auto) 80.3 Lymph % (Auto) 6.7 L Catron % (Auto) 11.2 H Eos % (Auto) 1.4 Baso % (Auto) 0.4 Absolute Neuts (auto) 6.1 Absolute Lymphs (auto) 0.5 L Absolute Monos (auto) 0.8 Absolute Eos (auto) 0.1 Absolute Basos (auto) 0 Absolute Nucleated RBC 0 Nucleated RBC % 0 Sodium Potassium Chloride Carbon Dioxide Anion Gap BUN Creatinine Est GFR ( Amer) Est GFR (Non-Af Amer) BUN/Creatinine Ratio Glucose Lactic Acid Calcium Total Bilirubin AST ALT Alkaline Phosphatase Lactate Dehydrogenase 308 H B-Natriuretic Peptide Total Protein Albumin Globulin Albumin/Globulin Ratio Procalcitonin 1.0 H 08/15/16 08/15/16 08/15/16 05:43 07:58 07:58 WBC RBC Hgb Hct MCV MCH MCHC RDW Plt Count MPV Neut % (Auto) Lymph % (Auto) Catron % (Auto) Eos % (Auto) Baso % (Auto) Absolute Neuts (auto) Absolute Lymphs (auto) Absolute Monos (auto) Absolute Eos (auto) Absolute Basos (auto) Absolute Nucleated RBC Nucleated RBC % Sodium 139 Potassium 3.7 Chloride 107 Carbon Dioxide 24 Anion Gap 8 BUN 15 Creatinine 0.96 H Est GFR ( Amer) 71.0 Est GFR (Non-Af Amer) 55.2 BUN/Creatinine Ratio 15.6 Glucose 131 H Lactic Acid 1.4 Calcium 8.1 L Total Bilirubin 0.50 AST 25 ALT 11 Alkaline Phosphatase 114 H Lactate Dehydrogenase B-Natriuretic Peptide 1574 H Total Protein 6.5 Albumin 2.7 L Globulin 3.8 Albumin/Globulin Ratio 0.7 L Procalcitonin Imaging: CT chest - reviewed cxr 08/15 - bilateral interstitial infiltrates, progressive from prior; no effusion/ptx. Assessment: 85y F w/pmhx of Lung Ca s/p radiation therapy, CKD3?, Her2 Breast Ca s/p mastectomy and on chemo/immune therapy (ado-trastuzumab) ; who presents with hypoxia and delirium with progressive hypoxia and interstitial infiltrates. -Acute Hypoxic Respiratory Failure -Progressive pneumonitis hypersensitivity vs lymphangetic spread to lungs with acute pneumonitis vs atypical interstitial pneumonia -YARON on CKD 3? 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 cont neurochecks as per floor protocol. CVS- hemodyn stable; does not seem volume overloaded. given lasix, made urine but no significant change noted from resp standpoint. TTE likely tomorrow to eval LV function and for valve disease, r/o cardiogenic cause of pulm congestion /infiltrates; on trastuzamab which can cause some cardiac dsyfunction. will hold on further lasix. replete K as needed. No IVF now. Resp- hypoxic, now on NIV and more comfortable, RR improved, good TV and on 45% fio2. NIV 12/7 45%, discussed with resp to wean down fio2 first. keep sat>92%. Multiple etiologies possible for pulm infiltrates; doesnt seem much responsive to diuretics as per floor team. Discussed with them and the Son at bedside this could be lymphangetic spread vs hypersensitivity pneumonitis vs atypical pneumonia in her immune compromised state. Broad antimicrobial/antifungal/pcp coverage. Solumedrol IV. Bronchodilators PRN. She is DNR/DNI as per family. Conservative/medical management to be done. ID- afebrile, but she is immune compromised. WBC normal. d/c ceftriaxone and azithromycin. Change to cefepime/doxy, add Eraxis for antifungal coverage, add Bactrim IV 15mg/kg qdaily for possible PCP coverage. Will obtain ID consultation. GI- NPO while on bipap. PPI prophylaxis. Renal- Making urine, K normal, no acidosis. Cr improved from admission, likely some degree of CKD, baseline Cr fluctuate 1-1.4. Hold lasix for now. Heme- s/p immunotherapy/chemotherapy 2 weeks back. hg/plt stable. no bleeding. no coagulopathy. WBC normal, no leukopenia noted. Endo- FS as needed while on steroids. Musculsk- pressure ulcer prophylaxis Wounds- none Nutrition- npo on bipap for now. DVT prophylaxis: heparin sq; scds GI prophylaxis: pepcid Central Line: no Arterial Line: no Menjivar Cathetor: Disposition: transferred to ICU for respiratory failure Code Status: DNR/DNI Case and current medical conditions discussed with son at bedside, plan of care and options available discussed. Total Critical Care time is 45 minutes, excluding procedures/teaching Tomasz Sanchez MD Animal Behaviourist (Electronically Signed)
[2016-08-15] MEDS: TRIMETH IVPB SCH ×2 (13:00→19:57)
[2016-08-15] MEDS ORDERED: Anidulafungin* 200 MG in NS 0.9% 250 ML* 200 ML IVPB ONE (13:00)
[2016-08-15] MEDS: D5W IVPB SCH ×2 (13:00→19:57)
[2016-08-15] MEDS: methylPREDNISolone 125 MG* 2 ML VIAL IV SCH ×2 (13:00→20:55)
[2016-08-15] MEDS: SULFAMETHOXAZOLE IVPB SCH ×2 (13:00→19:57)
[2016-08-15] MEDS: DOXYcycline IV* 100 MG in NS 0.9% 250 ML* 250 ML IVPB SCH (14:39)
[2016-08-15] MEDS: Cefepime(*) 2 GM in NS 0.9% 50 ML* 50 ML IVPB SCH (19:57)
[2016-08-15] MEDS: Aspirin EC Low Dose* 81 MG TAB.EC PO SCH (22:09)
[2016-08-15] MEDS ORDERED: LORazepam INJ* 2 MG/ML 1 ML VIAL IV PUSH SCH (23:45)
[2016-08-16] MEDS: DOXYcycline IV* 100 MG in NS 0.9% 250 ML* 250 ML IVPB SCH ×2 (00:02→12:27)
[2016-08-16] MEDS: SULFAMETHOXAZOLE IVPB SCH ×3 (03:47→20:34)
[2016-08-16] MEDS: D5W IVPB SCH ×3 (03:47→20:34)
[2016-08-16] MEDS: TRIMETH IVPB SCH ×3 (03:47→20:34)
[2016-08-16] MEDS: methylPREDNISolone 125 MG* 2 ML VIAL IV SCH ×3 (05:10→20:26)
[2016-08-16] MEDS: Heparin VIAL(*) 5000 UNITS/ML VIAL (FIVE THOUSAND) SUBCUT SCH ×3 (05:11→21:59)
[2016-08-16 05:29] LABS: Hematocrit 35 % (35-47); Hemoglobin 10.9 g/dl (12.0-16.0); Mean Corpuscular HGB Conc 31 g/dl (31-36); Mean Corpuscular Hemoglobin 23 pg (27-31); Mean Corpuscular Volume 76 fL (80-97); Mean Platelet Volume 9 um3 (7.4-10.4); Red Blood Count 4.64 10^6/ul (4.0-5.4); Red Cell Distribution Width 21 % (10.5-15); White Blood Count 9.4 10^3/ul (3.5-10.8)
[2016-08-16 05:50] LABS: BUN/Creatinine Ratio 17.4 (8-20); Calcium 8.4 mg/dL (8.6-10.3); EGFR African American 57.7 (>60); EGFR Non-African American 44.8 (>60); Potassium 3.6 mmol/L (3.5-5.0)
[2016-08-16] MEDS: Morphine INJ* 2 MG/ML 1 ML SYRINGE IV PRN ×3 (07:31→20:27)
[2016-08-16] MEDS: Donepezil TAB* 5 MG PO SCH ×2 (07:38→20:38)
[2016-08-16] MEDS: DULoxetine DR CAP* 30 MG CAP.DR PO SCH (07:38)
[2016-08-16] MEDS: Pregabalin CAP(*) 50 MG PO SCH ×2 (07:38→20:38)
[2016-08-16] MEDS: Famotidine TAB* 20 MG PO SCH (07:39)
--- NOTE | 2016-08-16 08:38 | PN ---
Progress Note - Progress Note Note: Progress Note - Critical Care 24 hour events: -upgraded to icu yesterday; remains on bipap with increasing fio2 requirements and episodes of hypoxia overnight -CXR still with bilateral rhales, no significant sputum being coughed up. -on multiple antibiotics -awakens, appears to be in mild resp distress, more tachypneic this morning at 30s, sats mid upper 90s Tele: Sinus tachycardia Vitals: Vital Signs Temp 96.4 F 08/16/16 07:47 Pulse 97 08/16/16 06:00 Resp 29 08/16/16 07:31 BP 131/86 08/16/16 06:00 Pulse Ox 92 08/16/16 06:00 Intake & Output 08/15/16 08/16/16 08/16/16 18:59 06:59 18:59 Intake Total 70 1949 Output Total 0 Balance 70 1949 Weight 132 lb 15.02 oz Intake: IV Fluids 70 1949 NS (0.9%) 70 968 ns 981 Output: Urine 0 Other: Estimated Void Medium Medium # Voids 1 1 O2/Vent: NIV 03/04, 70% - sat 95%, tv 550-600, rr 30 Infusions: none Current Medications: Acetaminophen (Tylenol Tab*) 650 mg PO Q6H PRN PRN Reason: FEVER/PAIN Albuterol (Ventolin 2.5 Mg/3 Ml Neb.Zainab*) 2.5 mg INH Q2H PRN PRN Reason: SOB/WHEEZING Last Admin: 08/15/16 08:04 Dose: 2.5 mg Aspirin (Aspirin Ec Low Dose*) 81 mg PO BEDTIME [facility] Last Admin: 08/15/16 22:09 Dose: 81 mg Docusate Sodium (Colace Cap*) 200 mg PO BID PRN PRN Reason: CONSTIPATION Donepezil HCl (Aricept Tab*) 5 mg PO BID [facility] Last Admin: 08/16/16 07:38 Dose: 5 mg Duloxetine HCl (Cymbalta Cap*) 60 mg PO DAILY [facility] Last Admin: 08/16/16 07:38 Dose: 60 mg Famotidine (Pepcid Tab*) 20 mg PO DAILY [facility] Last Admin: 08/16/16 07:39 Dose: 20 mg Heparin Sodium (Porcine) (Heparin Vial(*)) 5,000 units SUBCUT Q8HR [facility] Last Admin: 08/16/16 05:11 Dose: 5,000 units Trimethoprim/Sulfamethoxazole (300 mg/ Dextrose) 518.75 mls @ 259.375 mls/hr IVPB Q8H [facility] Last Admin: 08/16/16 03:47 Dose: 259.375 mls/hr Doxycycline Hyclate 100 mg/ (Sodium Chloride) 250 mls @ 250 mls/hr IVPB Q12H [facility] Last Admin: 08/16/16 00:02 Dose: 250 mls/hr Anidulafungin 100 mg/ Sodium (Chloride) 130 mls @ 65 mls/hr IVPB Q24H [facility] Cefepime HCl 2 gm/ Sodium (Chloride) 50 mls @ 100 mls/hr IVPB Q24H [facility] Last Admin: 08/15/16 19:57 Dose: 100 mls/hr Vancomycin HCl 1,000 mg/ (Sodium Chloride) 250 mls @ 166.667 mls/hr IVPB Q12H [facility] Lorazepam (Ativan Inj*) 0.5 mg IV PUSH QPM [facility] Last Admin: 08/16/16 05:11 Dose: Not Given Methylprednisolone Sodium Succinate (Solu-Medrol 125mg *) 60 mg IV Q8H [facility] Last Admin: 08/16/16 05:10 Dose: 60 mg Morphine Sulfate (Morphine Inj (Syringe)*) 2 mg IV Q3H PRN PRN Reason: PAIN Last Admin: 08/16/16 07:31 Dose: 2 mg Pregabalin (Lyrica Cap(*)) 150 mg PO BID [facility] Last Admin: 08/16/16 07:38 Dose: 150 mg Physical Exam: General: awakens, alert, resp distress distress, no diaphoresis, cooperative; on NIV Head: normocephalic, atraumatic HEENT: no pallor, no icterus, moist mucous membranes Neck: soft, supple, no jvd, no stridor CVS: tachycardic, no murmur Resp: bilateral air entry, +rhales bilaterally, mild scattered wheeze+, mild acc muscle use at times Abdomen: soft, nontender, nondistended, bowel sounds present Ext: pulses+, warm, no edema Skin: intact, no breakdown, no dryness Neuro: awakens, alert, orientedx3, moving all extremities, no gross focal deficit Labs: Laboratory Results - last 24 hr 08/15/16 08/15/16 08/15/16 05:43 07:58 07:58 WBC RBC Hgb Hct MCV MCH MCHC RDW Plt Count MPV Sodium Potassium Chloride Carbon Dioxide Anion Gap BUN Creatinine Est GFR ( Amer) Est GFR (Non-Af Amer) BUN/Creatinine Ratio Glucose Lactic Acid 1.4 Calcium B-Natriuretic Peptide 1574 H Procalcitonin 1.0 H 08/16/16 08/16/16 05:16 05:16 WBC 9.4 RBC 4.64 Hgb 10.9 L Hct 35 MCV 76 L MCH 23 L MCHC 31 RDW 21 H Plt Count 232 MPV 9 Sodium 135 Potassium 3.6 Chloride 104 Carbon Dioxide 21 L Anion Gap 10 BUN 20 Creatinine 1.15 H Est GFR ( Amer) 57.7 Est GFR (Non-Af Amer) 44.8 BUN/Creatinine Ratio 17.4 Glucose 196 H Lactic Acid Calcium 8.4 L B-Natriuretic Peptide Procalcitonin Imaging: CT chest - reviewed cxr 08/15 - bilateral interstitial infiltrates, progressive from prior; no effusion/ptx. Assessment: 85y F w/pmhx of Lung Ca s/p radiation therapy, CKD3?, Her2 Breast Ca s/p mastectomy and on chemo/immune therapy (ado-trastuzumab) ; who presents with hypoxia and delirium with progressive hypoxia and interstitial infiltrates. -Acute Hypoxic Respiratory Failure -Progressive pneumonitis hypersensitivity vs lymphangetic spread to lungs with acute pneumonitis vs atypical interstitial pneumonia -YARON on CKD 3? 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 cont neurochecks as per floor protocol. CVS- more tachycardic. no edema or jvd noted. no ivf on board now. will start mild IVF hydrations. no lasix yesterday once she came to ICU. Pending TTE to eval LV function and for valve disease, r/o cardiogenic cause of pulm congestion /infiltrates; on trastuzamab which can cause some cardiac dsyfunction. will hold on further lasix. replete K as needed. Resp- hypoxic, with increasing fio2 requirements. CXR pending for today. on 70% fio2 now. 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 keep sat>92%. Multiple etiologies possible for pulm infiltrates. WIll discuss with family once they arrive about progress, worsened respiratory status today. They have already inquired yesterday about progress and if she worsens about goals of care and comfort care if she is in distress. On solumedrol 60mg iv q8h. Broad antimicrobial/antifungal/pcp coverage. Bronchodilators PRN q2h. She is DNR/DNI as per family. Conservative/medical management to be done. ID- hypothermic now to 96.4, wbc 9 today, slowly rising. Blood cx neg; sputum cx staph aureus with 4+neutrophils. On cefepime/doxy/bactrim/eraxis; started vanco this morning. Will obtain ID consultation. GI- NPO while on bipap. PPI prophylaxis. Renal- Making urine, K replete, nongap acidosis now, Cr up to 1.15 today. Will give low dose IVF infusion 50cc/hour x500cc and see for change. Insert baptiste today. Heme- s/p immunotherapy/chemotherapy 2 weeks back. hg/plt stable. no bleeding. no coagulopathy. WBC normal, no leukopenia noted. Endo- FS as needed while on steroids. Musculsk- pressure ulcer prophylaxis Wounds- none Nutrition- npo on bipap for now. DVT prophylaxis: heparin sq; scds GI prophylaxis: pepcid Central Line: no Arterial Line: no Baptiste Cathetor: no; to be placed for i/o monitoring in critically ill patient. Disposition: ICU for respiratory failure and suspected pneumonia Code Status: DNR/DNI Total Critical Care time is 40 minutes, excluding procedures/teaching Tomasz Sanchez MD Improvement Advisor (Electronically Signed)
[2016-08-16] MEDS: Albuterol 2.5 MG/3 ML NEB.SOL* (0.083%) INH PRN (08:52)
--- NOTE | 2016-08-16 08:53 | RAD ---
INDICATION: Pneumonia COMPARISON: August 15, 2016 TECHNIQUE: An AP portable view obtained at 0834 hours is submitted. FINDINGS: Bones/Soft Tissues: There are no acute bony findings. Cardiomediastinal: The correct silhouette and central pulmonary vessels are prominent. Lungs: Diffuse interstitial and alveolar infiltrates with mild worsening. Pleura: Suspect a small bilateral. Other: None IMPRESSION: PROGRESSIVE INTERSTITIAL AND ALVEOLAR INFILTRATES MAY ALL RELATE TO PULMONARY EDEMA ALTHOUGH UNDERLYING PNEUMONITIS IS NOT EXCLUDED.
[2016-08-16] MEDS ORDERED: Vancomycin per Pharmacy* NOTE FOLLOW UP PRN (09:18)
[2016-08-16] MEDS: Vancomycin(*) 1,000 MG in NS 0.9% 250 ML* 250 ML IVPB SCH ×2 (09:39→21:14)
[2016-08-16] MEDS: NS 0.9% 1000 ML* 1,000 ML IV SCH (09:40)
--- NOTE | 2016-08-16 11:27 | ECHO ---
Patient: FREDY CHOUDHARY [facility] Rec#: [id number] : 1930 Date: 08/16/2016 Age: 85y Height: 162.6 cm / 64.0 in Weight: 61.2 kg / 134.9 lbs Sex: F BSA: 1.7 Room#: ICU 6 Admit Date#: 08/13/2016 Type: Inpatient Referring: Jimmy BLACK,Ayana Kuo Reading: Nilosn Fernandes MD Gift Shop Assistant: Connie Lozano RN RDCS CC: Leon Castaneda MD Transthoracic Echocardiogram Indication: Pulmonary edema BP: 131/86 HR: 104 Rhythm: Tachycardia Findings History: Lung cancer, radiation therapy, breast cancer, mastectomy, chemotherapy,DVTs, IVC filter 2004, thoracic aortic aneurysm. Technical Comments: The study quality is fair. Completed at 1100. Left Ventricle: The left ventricular chamber size is normal. There are multiple regional wall motion abnormalities. There is moderately decreased left ventricular systolic function. The estimated ejection fraction is 30-35%. Abnormal left ventricular diastolic filling is observed, consistent with impaired relaxation. Left Atrium: The left atrial chamber size is normal. Right Ventricle: The right ventricular chamber size and systolic function are within normal limits. Right Atrium: The right atrial cavity size is normal. Aortic Valve: The aortic valve is trileaflet. The aortic valve leaflets are mildly thickened. There is moderate thickening of the non coronary cusp. There is moderate aortic regurgitation.AR could be worse based on half time velocity. YORDAN may be helpful to better evaluate AR There is mild aortic stenosis. The mean gradient of the aortic valve is 8 mmHg. The peak instantaneous gradient of the aortic valve is 13 mmHg. The aortic valve area, by peak velocities, is calculated at 2.1 cm2. The aortic valve area, by VTI's, is calculated at 2.1 cm2. Mitral Valve: The mitral valve leaflets are mildly thickened. There is mild mitral regurgitation. There is no evidence of mitral stenosis. Tricuspid Valve: The tricuspid valve leaflets are normal. There is trace to mild tricuspid regurgitation. Unable to estimate the right ventricular systolic pressure. Pulmonic Valve: The pulmonic valve structure is not well visualized. There is trace to mild pulmonic regurgitation. There is no pulmonic stenosis. Pericardium: There is no significant pericardial effusion. Aorta: There is severe dilatation of the ascending aorta.4.8 cm There is no dilatation of the aortic arch. There is no dilation of the aortic root. Pulmonary Artery: The main pulmonary artery is not well visualized. Venous: The venous system is not well visualized. The inferior vena cava is not visualized. Conclusions There is moderately decreased left ventricular systolic function. There are multiple regional wall motion abnormalities. The estimated ejection fraction is 30-35%. Abnormal left ventricular diastolic filling is observed, consistent with impaired relaxation. The right ventricular chamber size and systolic function are within normal limits. The aortic valve leaflets are mildly thickened. There is moderate aortic regurgitation.AR could be worse based on half time velocity. YORDAN may be helpful to better evaluate AR There is mild mitral regurgitation. There is trace to mild tricuspid regurgitation. Unable to estimate the right ventricular systolic pressure. There is no significant pericardial effusion. 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 The degree of AR is worse. The dilated Asc Aorta is new Measurements Name Value Normal Range RVDdMajor (2D) 3.2 cm (2.2 - 4.4) RAd ISD 4CH 4.2 cm (3.4 - 4.9) RA (A4C)W 3.6 cm (2.9 - 4.6) IVSd (2D) 0.9 cm (0.6 - 1) LVPWd (2D) 1 cm (0.6 - 1) LVIDd (2D) 3.6 cm (3.6 - 5.4) LVIDs (2D) 2.6 cm - LV FS (2D) 27 % (25 - 45) Aortic Annulus 1.9 cm (1.4 - 2.6) Ao root diameter (2D) 3.1 cm (2.1 - 3.5) Ascending Ao 4.8 cm (2.1 - 3.4) Aortic arch 2.3 cm (1.8 - 3.4) LAd ISD 4CH 4.2 cm (2.9 - 5.3) LA ISD 4CH W 3.9 cm (2.5 - 4.5) Name Value Normal Range LA ESV SP 4CH (A/L) 37 ml - LA ESV SP 2CH (A/L) 47 ml - LA ESV BP (A/L) 46 ml - LA ESV BP (A/L) index 28 ml/m2 - LA ESV SP 4CH (MOD) 32 ml - LA ESV SP 2CH (MOD) 44 ml - Name Value Normal Range MV E-wave Vmax 0.83 m/sec - MV deceleration time 219 msec - MV A-wave Vmax 1.1 m/sec - MV E:A ratio 0.7 ratio - LV septal e' Vmax 0.04 m/sec - LV lateral e' Vmax 0.08 m/sec - LV E:e' septal ratio 20.8 ratio - LV E:e' lateral ratio 10.4 ratio - Name Value Normal Range AV Vmax 1.8 m/sec - AV VTI 35.9 cm - AV peak gradient 13 mmHg - AV mean gradient 8 mmHg - LVOT diameter 2 cm - LVOT Vmax 1.2 m/sec - LVOT VTI 23.6 cm - LVOT peak gradient 6.1 mmHg - LVOT mean gradient 4.1 mmHg - DOI (VTI) 0.66 ratio - DOI (Vmax) 0.67 ratio - HAYLEY (continuity Vmax) 2.1 cm2 - HAYLEY (continuity VTI) 2.1 cm2 - AR PHT 237 msec - DAE Vmax 0.49 m/sec - Name Value Normal Range PV Vmax 0.9 m/sec -
[2016-08-16] MEDS ORDERED: Furosemide IV* 10 MG/ML 2 ML VIAL (20 MG) IV SLOW PU ONE (14:12)
[2016-08-16] MEDS: Cefepime(*) 2 GM in NS 0.9% 50 ML* 50 ML IVPB SCH (18:21)
[2016-08-16] MEDS ORDERED: D5W 500 ML BAG* 500 ML ONE (20:16)
[2016-08-16] MEDS: Aspirin EC Low Dose* 81 MG TAB.EC PO SCH (20:38)
[2016-08-17] MEDS: DOXYcycline IV* 100 MG in NS 0.9% 250 ML* 250 ML IVPB SCH ×2 (00:07→13:21)
[2016-08-17] MEDS: Morphine INJ* 2 MG/ML 1 ML SYRINGE IV PRN ×6 (01:31→16:37)
[2016-08-17] MEDS: Albuterol 2.5 MG/3 ML NEB.SOL* (0.083%) INH PRN (01:36)
[2016-08-17] MEDS: methylPREDNISolone 125 MG* 2 ML VIAL IV SCH ×2 (04:00→12:40)
[2016-08-17] MEDS: SULFAMETHOXAZOLE IVPB SCH ×2 (04:03→14:24)
[2016-08-17] MEDS: TRIMETH IVPB SCH ×2 (04:03→14:24)
[2016-08-17] MEDS: D5W IVPB SCH ×2 (04:03→14:24)
[2016-08-17] MEDS: Heparin VIAL(*) 5000 UNITS/ML VIAL (FIVE THOUSAND) SUBCUT SCH ×2 (06:00→13:28)
[2016-08-17] MEDS: NS 0.9% 1000 ML* 1,000 ML IV SCH (06:05)
[2016-08-17 06:51] LABS: EGFR African American 40.6 (>60); EGFR Non-African American 31.5 (>60)
[2016-08-17] MEDS: Vancomycin(*) 1,000 MG in NS 0.9% 250 ML* 250 ML IVPB SCH (08:37)
[2016-08-17] MEDS: Pregabalin CAP(*) 50 MG PO SCH ×2 (09:09→09:48)
[2016-08-17] MEDS: DULoxetine DR CAP* 30 MG CAP.DR PO SCH ×2 (09:09→09:48)
[2016-08-17] MEDS: Donepezil TAB* 5 MG PO SCH ×2 (09:09→09:48)
[2016-08-17] MEDS: Famotidine TAB* 20 MG PO SCH ×2 (09:11→09:48)
--- NOTE | 2016-08-17 09:50 | PN ---
Progress Note - Progress Note SOAP: Subjective: []Progressive SOB. Now on Bipap and trial of high flow O2 failed. Not able to eat second to SOB. Morphine helps. Comfortable on Bipap at time of exam. Started several new medication over weekend, steroids, bipap, fungal coverage. Acetaminophen (Tylenol Tab*) 650 mg PO Q6H PRN PRN Reason: FEVER/PAIN Albuterol (Ventolin 2.5 Mg/3 Ml Neb.Zainab*) 2.5 mg INH Q2H PRN PRN Reason: SOB/WHEEZING Last Admin: 08/17/16 01:36 Dose: 2.5 mg Aspirin (Aspirin Ec Low Dose*) 81 mg PO BEDTIME [facility] Last Admin: 08/16/16 20:38 Dose: 81 mg Docusate Sodium (Colace Cap*) 200 mg PO BID PRN PRN Reason: CONSTIPATION Donepezil HCl (Aricept Tab*) 5 mg PO BID [facility] Last Admin: 08/16/16 20:38 Dose: 5 mg Duloxetine HCl (Cymbalta Cap*) 60 mg PO DAILY [facility] Last Admin: 08/16/16 07:38 Dose: 60 mg Famotidine (Pepcid Tab*) 20 mg PO DAILY [facility] Last Admin: 08/16/16 07:39 Dose: 20 mg Heparin Sodium (Porcine) (Heparin Vial(*)) 5,000 units SUBCUT Q8HR [facility] Last Admin: 08/17/16 06:00 Dose: 5,000 units Trimethoprim/Sulfamethoxazole (300 mg/ Dextrose) 518.75 mls @ 259.375 mls/hr IVPB Q8H [facility] Last Admin: 08/17/16 04:03 Dose: 259.375 mls/hr Doxycycline Hyclate 100 mg/ (Sodium Chloride) 250 mls @ 250 mls/hr IVPB Q12H [facility] Last Admin: 08/17/16 00:07 Dose: 250 mls/hr Anidulafungin 100 mg/ Sodium (Chloride) 130 mls @ 65 mls/hr IVPB Q24H [facility] Last Admin: 08/16/16 13:48 Dose: 65 mls/hr Cefepime HCl 2 gm/ Sodium (Chloride) 50 mls @ 100 mls/hr IVPB Q24H [facility] Last Admin: 08/16/16 18:21 Dose: 100 mls/hr Vancomycin HCl 1,000 mg/ (Sodium Chloride) 250 mls @ 166.667 mls/hr IVPB Q12H [facility] Last Admin: 08/17/16 08:37 Dose: 166.667 mls/hr Sodium Chloride (Ns 0.9% 1000 Ml*) 1,000 mls @ 50 mls/hr IV .PER RATE [facility] Last Admin: 08/17/16 06:05 Dose: 50 mls/hr Methylprednisolone Sodium Succinate (Solu-Medrol 125mg *) 60 mg IV Q8H [facility] Last Admin: 08/17/16 04:00 Dose: 60 mg Morphine Sulfate (Morphine Inj (Syringe)*) 2 mg IV Q2H PRN PRN Reason: SHORTNESS OF BREATH Last Admin: 08/17/16 09:08 Dose: 2 mg Pharmacy Consult (Vancomycin Per Pharmacy*) 1 note FOLLOW UP . PRN PRN Reason: PER PROTOCOL Pharmacy Profile Note (Vancomycin Trough Check) 1 note FOLLOW UP 2030 ONE Stop: 08/17/16 20:31 Pregabalin (Lyrica Cap(*)) 150 mg PO BID [facility] Last Admin: 08/16/16 20:38 Dose: 150 mg Objective: [] Vital Signs Temp Pulse Resp BP Pulse Ox 97.9 F 95 23 121/74 95 08/17/16 07:26 08/17/16 07:00 08/17/16 09:08 08/17/16 07:00 08/17/16 07:00 A&Ox3, though some difficulty with situation. HRR, tele ST with PVCs LS decreased, short breaths, crackles. no wheezing +BS, abd. soft and non-tender +PP=bilat., no edema noted Assessment: []85 yo f with metastatic breast cancer currently receiving Kadcyla. Admitted to the hospital with altered mental status and CT reveal concern for pneumonia. Over pasts several days has had continued worsening of respiratory status as well as progressive diffuse peritonitis on CXR. Differential is atypical infection, drug induced peritonitis, CHF and CRI are complicating. Regardless of cause, I discussed with family that I improvement is possible but unlikely. May from this over next few days. Plan: 1. DNR and no incubation, morphine for comfort with BiPap. She understands that if respiratory function declines further will from this. 2. Will continue medical therapy for time being. Many medications started in last 48 hrs, could still see improvement from steroids or Bactrim. 3. Increased Cr both from diuretics and artifact from starting Bactrim 4. Appreciate management by ICU team. 5. Family aware she may from this in next several days. Touched on withdrawal of care in 48 hrs if no improvement. face time with patient and chart 60 min
[2016-08-17] MEDS ORDERED: NS 0.9% 250 ML* 0 ML ONE (13:09)
--- NOTE | 2016-08-17 13:32 | PN ---
Critical Care Services: Patient continues on BIPAP - efforts to switch to Vapotherm resulted in severe O2 desaturation. Is alert and oriented. Vital Signs: Temp Pulse Resp BP SpO2 FiO2 98.5 F 93 20 131/69 93 90 Physical Exam: Gen:Alert and conversant. No apparent respiratory distress. Lungs:Bibasilar crackles L>>R. Extremities:No cyanosis or edema. Fluid Balance (Past 24 Hours): 08/17/16 06:59 Intake Total 4149 Output Total 925 Balance +3224 Weight 138 lb 12.8 oz Intake: IV Fluids 1696 NS (0.9%) 654 ns 1042 IVPB 1883 ABX - CEFTRIAXONE ns 1883 Oral 570 Output: Urine Menjivar 925 Other: Estimated Void # Bowel Movements Estimated Stool Amount # Voids Labs: 08/17/16 05:17 BUN 25 H Creatinine 1.56 H Studies: CXR: Progressive infiltration in both lungs. Nutrition: Patient is on an oral diet, but intake is poor because of the need for BIPAP. Impression: Diffuse and progressive infiltrative lung process, which is presumably infection. MRSA isolated in the sputum, but it is unlikely this represents a "deep" specimen, so implications of this sputum culture are unclear. Plan: Continue multiple antibiotics for now. Family has agreed to "comfort measures only" care if there are no signs of improvement in the next 24 hrs.
[2016-08-17] MEDS ORDERED: Morphine INJ* 2 MG/ML 1 ML SYRINGE IV PRN (16:49)
[2016-08-17 18:03] VITALS: BP 115/76
[2016-08-17] MEDS: Cefepime(*) 2 GM in NS 0.9% 50 ML* 50 ML IVPB SCH (18:14)
[2016-08-17] MEDS ORDERED: LORazepam INJ* 2 MG/ML 1 ML VIAL ONE (20:13)
[2016-08-17] MEDS ORDERED: Morphine INJ* 10 MG/ML 1 ML SYRINGE ONE (20:13)
[2016-08-17] MEDS ORDERED: Morphine PCA ADULT* 5 MG/ML 30 ML ONE (20:22)
[2016-08-17] MEDS ORDERED: Vancomycin Trough Check NOTE FOLLOW UP ONE (20:30)
--- NOTE | 2016-08-17 20:38 | CONS ---
CONSULTATION REPORT: DATE OF CONSULT: 08/17/16 REQUESTING PHYSICIAN: Dr. Sanchez. CONSULTING SERVICE: Infectious Disease. REASON FOR CONSULT: Pneumonia. IMPRESSION: 1. Pneumonia in the setting of lung cancer and breast cancer and recent chemotherapy. CT scan shows diffuse bilateral interstitial and alveolar infiltrates involving all lobes. On the CT scan, radiology report described as patchy ground-glass densities, severe in the left lower lobe. This is new compared to CT in June. The differential diagnosis includes bacteria. She did grow MRSA in her sputum versus atypical bacterial and the usual community- acquired pneumonia organisms, which also include respiratory viruses, fungal infections, and consideration given recent chemotherapy and she is being covered for pneumocystis. Other considerations would be cryptococcus. She is not neutropenic, so I think invasive aspergillosis unlikely, puja is a consideration. I doubt mycobacterial infection and noninfectious considerations including organizing pneumonia in the differential as well. 2. Acute hypoxemic respiratory failure present on admission and getting worse due to #1. 3. Dementia. 4. Chronic kidney disease. 5. Elevated C-reactive protein. RECOMMENDATION: Agree with vancomycin goal trough 15 to 20; if access is an issue, could change to linezolid to be easier on the veins. Given how tenuous her situation is, I think it is prudent to continue broad-spectrum coverage with cefepime, doxycycline for atypical coverage, and antifungal therapy. She is also on steroids and Bactrim for pneumocystis. We will add a cryptococcal antigen. HISTORY OF PRESENT ILLNESS: An 85-year-old woman with breast cancer, undergoing chemotherapy for that. Admitted with progressive dyspnea. She cannot provide a lot of the history, which was obtained instead from discussion with her son and review of the medical record. She had a couple of days of worsening dyspnea, nonproductive cough, and her son found her to be lethargic. She had IV fluid hydration in the ER on the . She had a CT scan with findings above. She was started on broad-spectrum antibiotics. Vancomycin was added yesterday. Bactrim was added on the along with steroids. Sputum cultures grew MRSA and normal bridget. Blood cultures are negative. She has had no fever, while she was here. She has had progressive hypoxia and is on BiPAP now with 90% FiO2. Chest x-ray shows progression of bilateral infiltrates. PAST MEDICAL HISTORY: 1. Lung cancer, treated with radiation. 2. Breast cancer, treated with chemotherapy and left mastectomy in April of 2016. 3. Chronic kidney disease. 4. Dementia. 5. Hyperlipidemia. 6. History of DVT, with IVC filter. 7. History of GI hemorrhage. 8. Spinal stenosis with decompression surgery. 9. Pelvic fracture. 10. Thoracic aortic aneurysm. 11. Peripheral neuropathy. 12. History of urinary tract infection. MEDICATIONS: 1. Tylenol. 2. Aspirin. 3. Bactrim 300 mg every 8 hours. 4. Doxycycline 100 mg every 12 hours. 5. Duloxetine. 6. Donepezil. 7. Anidulafungin. 8. Heparin subcutaneous injection. 9. Cefepime 2 g once a day. 10. Vancomycin 1 g every 12 hours. 11. Methylprednisolone 60 mg every 8 hours. ALLERGIES: NITROFURANTOIN, PENICILLIN, and TERFENADINE. FAMILY HISTORY: Noncontributory, otherwise hypertension. SOCIAL HISTORY: Has lived at [place]. No travel. No sick contacts. REVIEW OF SYSTEMS: Unobtainable given BiPAP. PHYSICAL EXAM: Vital Signs: Temperature is 37, heart rate 90, respiratory rate 25, blood pressure 130/70, and O2 sat 92% on 90% FiO2 on BiPAP. General: She is awake, not in distress, appears comfortable. Neurologic: She is oriented , answers some questions, moves all extremities. HEENT: There is no conjunctival hemorrhage. Oropharynx without lesions. Neck: Supple without nuchal rigidity. Lymph Nodes: There is no cervical, supraclavicular, inguinal, axillary, or epitrochlear lymphadenopathy. Heart: Regular and tachycardic without murmurs. Lungs have coarse bilateral expiratory breath sounds without wheezes or rales. Abdomen: Soft, nontender, and nondistended. Skin: There is no rash or splinter hemorrhages. Musculoskeletal: No spinous tenderness to palpation or joint synovitis. LABORATORY DATA: White blood cell count 9, hemoglobin 10, platelets 232. Creatinine is 1.5. Procalcitonin is 1. CRP was 146. Please see impressions and recommendations outlined above which I have discussed with Dr. Mcnulty. Thanks for asking me to see Ms. Naidu in consultation. [id number]/[facility] #: [id number] MTDD
[2016-08-17] MEDS ORDERED: NS 0.9% 50 ML* 50 ML ONE (20:41)
[2016-08-17] MEDS ORDERED: Morphine PCA 5 MG/ML * Titrate per Protocol PCA SCH (21:00)
[2016-08-17] MEDS ORDERED: LORazepam INJ* 2 MG/ML 1 ML VIAL IV PUSH ONE (21:00)
[2016-08-17] MEDS ORDERED: Morphine INJ* 10 MG/ML 1 ML SYRINGE IV ONE (21:00)
[2016-08-18] MEDS ORDERED: DULoxetine DR CAP* 60 MG CAP.DR PO SCH (09:00)
== END 2016-08-17 21:20 | disposition expired | DRG 193 ==
LOC: ED 17:23 → MEDTELE 23:39 → OBSVTOIN 08-13 14:32 → ICU 08-15 10:00
PROVIDERS: ADMIT Hospitalist; ATTEND Internal Medicine Critical Care Medicine
PROC: 5A09457 Assistance with Respiratory Ventilation, 24-96 Consecutive Hours, Continuous Positive Airway Pressure (ICD-10-PCS; 2016-08-15)
PROC: 0T9B70Z Drainage of Bladder with Drainage Device, Via Natural or Artificial Opening (ICD-10-PCS; principal; 2016-08-16)
DX: J18.9 Pneumonia, unspecified organism (principal); J96.01 Acute respiratory failure with hypoxia; K65.9 Peritonitis, unspecified; N17.9 Acute kidney failure, unspecified; C78.7 Secondary malignant neoplasm of liver and intrahepatic bile duct; E87.2 Acidosis; I48.92 Unspecified atrial flutter; I71.2 Thoracic aortic aneurysm, without rupture; G30.9 Alzheimer's disease, unspecified; C50.919 Malignant neoplasm of unspecified site of unspecified female breast; F02.80 Dementia in other diseases classified elsewhere, unspecified severity, without behavioral disturbance, psychotic disturbance, mood disturbance, and anxiety; J15.212 Pneumonia due to Methicillin resistant Staphylococcus aureus; Z66 Do not resuscitate; N18.3 Chronic kidney disease, stage 3 (moderate); E78.5 Hyperlipidemia, unspecified; F32.9 Major depressive disorder, single episode, unspecified; R40.2412 Glasgow coma scale score 13-15, at arrival to emergency department; R00.0 Tachycardia, unspecified; K59.00 Constipation, unspecified; R41.0 Disorientation, unspecified; G62.9 Polyneuropathy, unspecified; Z86.711 Personal history of pulmonary embolism; Z88.1 Allergy status to other antibiotic agents; Z85.118 Personal history of other malignant neoplasm of bronchus and lung; Z92.3 Personal history of irradiation; Z92.21 Personal history of antineoplastic chemotherapy; Z88.0 Allergy status to penicillin; Z88.8 Allergy status to other drugs, medicaments and biological substances; Z95.828 Presence of other vascular implants and grafts; Z86.718 Personal history of other venous thrombosis and embolism; Z90.12 Acquired absence of left breast and nipple; Z87.891 Personal history of nicotine dependence; Z82.49 Family history of ischemic heart disease and other diseases of the circulatory system; Z72.89 Other problems related to lifestyle; Z87.440 Personal history of urinary (tract) infections
CPT/HCPCS: 36415; 36600; 70470; 71010; 71275; 80048; 80053; 82565; 82803; 83605; 83615; 83880; 84145; 84484; 84520; 85025; 85027; 85379; 85730; 86140; 87040; 87070; 87077; 87186; 87205; 87641; 87899; 93005; 93306; 94640; 94660; 94760; 99233; A9270-GY; G0378; J0348; J0456; J0692; J0696; J1644; J1940; J2060; J2270; J2930; J3370; Q9967